=== PATIENT | female | born 1940 | race Caucasian/White ===

== ENCOUNTER → 2017-12-06 13:08 | Outpatient (CLI) | payer MEDICARE, BC, SELFPAY ==
--- NOTE | 2017-12-06 13:14 | DI.MRI.S_ITS ---
PROCEDURE: MR THORACIC SPINE WO CON INDICATIONS: Chronic thoracic spine and rib pain TECHNIQUE: Noncontrast sagittal T1 spine echo and T2 fast spin echo, sagittal STIR, axial T1 and T2 fast spin echo through the thoracic spine. COMPARISON: None. FINDINGS: Image quality: Excellent. Alignment and Curvature: There is normal bony alignment. Bone Marrow: Marrow is of normal overall signal. No acute vertebral body compression fractures. Spinal Cord: Visualized spinal cord is normal in size and signal. Paraspinous Soft Tissues: No paravertebral masses. Multiple T2 hyperintense, T1 hypointense lesions are present within the renal cortex bilaterally. Miscellaneous: On axial images, central canal and foramina appear widely patent at all scanned levels. IMPRESSION: 1. Normal spinal alignment. No wedge compression deformities, canal stenosis, or foraminal narrowing. No findings to explain chronic thoracic pain. 2. Probable renal cysts which are incompletely characterized on this limited view. Dictated by: Lindsey Condon M.D. on 12/06/2017 at 15:59 Approved by: Lindsey Condon M.D. on 12/06/2017 at 16:01
== END ==
PROVIDERS: Family Provider Family Medicine; PCP Family Medicine; Visit Provider Physical Medicine & Rehabilitation
DX: M54.6 Pain in thoracic spine (principal); R07.81 Pleurodynia; G89.29 Other chronic pain; R07.89 Other chest pain
CPT/HCPCS: 72146

== ENCOUNTER → 2017-12-25 11:41 | Outpatient (CLI) | payer MEDICARE, BC, SELFPAY | PROVIDERS: Family Provider Family Medicine; PCP Family Medicine; Visit Provider Family Medicine | DX: M81.0 Age-related osteoporosis without current pathological fracture (principal); Z78.0 Asymptomatic menopausal state; Z87.891 Personal history of nicotine dependence | CPT/HCPCS: 77080 ==

== ENCOUNTER → 2018-01-09 11:20 | Outpatient (CLI) | payer MEDICARE, BC, SELFPAY ==
--- NOTE | 2018-01-09 11:23 | DI.RAD.S_ITS ---
PROCEDURE: XR LUMBAR SPINE MIN 4V INDICATIONS: Lumbosacral spondylosis with coccydynia TECHNIQUE: 5 views of the lumbar spine were acquired. COMPARISON: None. FINDINGS: Bones: 5 nonrib-bearing vertebrae are present. Age indeterminate anterior wedge compression deformity at L2 level is seen with 20% loss of L2 vertebral body height anteriorly. Minimal anterolisthesis of L4 on L5 is seen. Degenerative endplate changes and bilateral facet arthrosis throughout lumbar spine is noted. No suspicious bony lesions. Soft tissues: Overlying bowel gas pattern is normal. No suspicious soft tissue calcifications. Oblique images: No pars defects. Suggestion of bilateral neural foramina narrowing at L4-5 level. IMPRESSION: Grade 1 anterolisthesis of L4 on L5. No gross pars defect. Degenerative disc disease throughout lumbar spine with suggestion of bilateral neural foramina narrowing at L4-5 level. Age indeterminate mild compression deformity at L2 level. Dictated by: Salvatore Winters M.D. on 01/09/2018 at 12:36 Approved by: Salvatore Winters M.D. on 01/09/2018 at 12:37
== END ==
PROVIDERS: Family Provider Family Medicine; PCP Family Medicine; Visit Provider Physical Medicine & Rehabilitation
DX: M47.817 Spondylosis without myelopathy or radiculopathy, lumbosacral region (principal); M51.36 Other intervertebral disc degeneration, lumbar region; M53.3 Sacrococcygeal disorders, not elsewhere classified; M43.16 Spondylolisthesis, lumbar region
CPT/HCPCS: 72110

== ENCOUNTER → 2018-01-22 11:23 | Outpatient (CLI) | payer MEDICARE, BC, SELFPAY ==
--- NOTE | 2018-01-22 11:25 | DI.MRI.S_ITS ---
PROCEDURE: MR LUMBAR SPINE WO CON INDICATIONS: Spondylosis without myelopathy or radiculopathy, l TECHNIQUE: Noncontrast sagittal T1 spin echo and T2 fast echo, sagittal STIR, axial T1 and T2 fast spin echo through the lumbar spine. In cases with scoliosis, additional coronal T2 fast spin echo may be performed. COMPARISON: None. FINDINGS: Image quality: Excellent. Alignment and Curvature: There is normal bony alignment. Bone Marrow: Chronic appearing L2 compression fracture. Presumed bone island in the L3 vertebral body Spinal Cord: Conus medullaris terminates at the L2 level. Visualized cord demonstrates normal signal and size. Paraspinous Soft Tissues: No paravertebral masses. Numerous bilateral T2 hyperintense renal lesions presumably small cysts although technically nonspecific L1-L2: Mild broad-based posterior disc bulge and minimal canal narrowing. No foraminal stenosis. L2-L3: Normal appearance. L3-L4: Minimal broad-based posterior disc bulge and bilateral facet arthropathy. No canal stenosis or neuroforaminal narrowing.. L4-L5: Broad-based posterior small bilateral facet arthropathy. No definite canal narrowing. No foraminal stenosis. L5-S1: Broad-based posterior disc bulge bilateral facet arthropathy. No canal stenosis. No foraminal narrowing. IMPRESSION: Mild multilevel lumbar disc and facet degeneration and chronic L2 compression fracture. No high-grade canal stenosis. No foraminal narrowing. Dictated by: Rah Worthy M.D. on 01/22/2018 at 14:17 Approved by: Rah Worthy M.D. on 01/22/2018 at 14:24
== END ==
PROVIDERS: Family Provider Family Medicine; PCP Family Medicine; Visit Provider Physical Medicine & Rehabilitation
DX: M47.817 Spondylosis without myelopathy or radiculopathy, lumbosacral region (principal); M51.36 Other intervertebral disc degeneration, lumbar region; M48.56XA Collapsed vertebra, not elsewhere classified, lumbar region, initial encounter for fracture
CPT/HCPCS: 72148

== ENCOUNTER 2018-10-01 10:43 | Emergency (ER) | payer MEDICARE, BC, SELFPAY ==
[2018-10-01 10:51] VITALS: BP 164/80; PULSE 65; RESP 16; TEMP 37.1; O2SAT 99; BMI 18.5
--- NOTE | 2018-10-01 10:55 | DI.RAD.S_ITS ---
PROCEDURE: XR CHEST 2V INDICATIONS: felt pop in left rib TECHNIQUE: 2 views of the chest were acquired. COMPARISON: [facility], , CHEST 1 VIEW, 09/30/2016, 12:45. FINDINGS: Surgical changes and devices: None. Lungs and pleura: Lungs are clear. No pleural effusions or pneumothorax. Lungs are hyperinflated. Mediastinum: Mediastinal contours are normal. Heart size is normal. Bones and chest wall: No suspicious bony abnormalities. Soft tissues appear unremarkable. There is a nondisplaced lucency in the left lateral 8th rib. IMPRESSION: 1. Hyperinflation suggestive of COPD. 2. Nondisplaced lucency in the left 8th lateral rib. Recommend correlation to point tenderness, as nondisplaced fracture cannot be excluded vs artifact. If concern persists, rib series cannot be excluded. Dictated by: Tali Bauer M.D. on 10/01/2018 at 12:00 Approved by: Tali Bauer M.D. on 10/01/2018 at 12:05
--- NOTE | 2018-10-01 12:46 | PC.NURSE ---
Pt called into ED requesting update. I went out to speak w/ her. at chair. Explained to pt that I did not have an area to bring her back to at this time r/t high acuity / volume but she would be seen soon. Explained triage system. Pt refused offer of tylenol / ibuprofen stating 'they don't work'. Pt had easy work of breathing and could speak in full sentences. Chest x ray had been completed. At that time pt began to explain that she would like prednisone. I was starting to explain that she could discuss w/ provider in private area when she was seen. then began to discuss why that was not a good idea. I asked to hold for a moment as I wanted to ensure privacy. then stated I had screwed up and was not doing my job. He started to raise his voice, at that time I asked that he show patience. he then told me that I had screwed up doing triage. I went on to explain that we had significant acuity and volume at this time. He appeared to be attempting to intimidate me. He continued to tell me I had made an error in not bringing his back. I asked pt is an ice pack would help, she stated yes, and one was provided. I also spoke w/ provider about a lidocaine patch, which was ordered. When I went back to give ice pack, was not there.
--- NOTE | 2018-10-01 12:57 | PC.NURSE ---
Pt called stating she wanted to leave. [facility] informer her that there were going to be discharges soon and the wait may not be excessive. She chose to leave and signed VDC form.
== END 2018-10-01 12:56 | disposition left against medical advice (07) ==
PROVIDERS: Emergency Provider Emergency Medicine; Family Provider Physical Medicine & Rehabilitation; PCP Family Medicine
DX: R07.81 Pleurodynia (principal); Z53.20 Procedure and treatment not carried out because of patient's decision for unspecified reasons; M41.50 Other secondary scoliosis, site unspecified; S32.029A Unspecified fracture of second lumbar vertebra, initial encounter for closed fracture; M94.0 Chondrocostal junction syndrome [Tietze]; M54.14 Radiculopathy, thoracic region; M47.817 Spondylosis without myelopathy or radiculopathy, lumbosacral region; M53.3 Sacrococcygeal disorders, not elsewhere classified; M19.071 Primary osteoarthritis, right ankle and foot
CPT/HCPCS: 71046; 98925; 99213; 99282

== ENCOUNTER → 2018-11-01 12:36 | Outpatient (CLI) | payer MEDICARE, BC, SELFPAY ==
--- NOTE | 2018-11-01 | DI.CT.S_ITS ---
PROCEDURE: CT CHEST WO CON INDICATIONS: ABNORMAL RIB XRAY. LEFT 8TH LATERAL TECHNIQUE: Noncontrast 5 mm thick sections acquired from the pulmonary apices to the posterior costophrenic angles. 7 mm thick coronal and sagittal MIP reformats were then acquired. For radiation dose reduction, the following was used: automated exposure control, adjustment of mA and/or kV according to patient size. COMPARISON: [facility], CT, ANGIOGRAPHY CHEST AND ABDOMEN, 09/30/2016, 12:58. FINDINGS: Image quality: Diagnostic. Lungs and pleura: The lungs are well aerated. There is no focal consolidation, effusion, or pneumothorax. Minimal scar versus atelectasis at the left lung base is present. There is no lung mass or definite lung nodule. Mediastinum: Heart size is normal. No pericardial effusion. No mediastinal adenopathy by size criteria. Thoracic aorta and central pulmonary arteries are normal in size. Coronary and aortic atherosclerosis is present. Esophagus is normal in caliber. No hiatal hernia. Bones and chest wall: No suspicious bony lesions. No vertebral body compression fractures. No displaced rib fractures are identified. There are prominent degenerative changes at the sternomanubrial junction with associated sclerosis and areas of degenerative cystic change. No axillary or supraclavicular adenopathy by size criteria. Thyroid gland is not enlarged or adequately evaluated. Abdomen: Included portions of the upper abdomen demonstrate heterogeneity of both kidneys with areas of increased and decreased density which is not adequately evaluated on this study and may represent mildly complex cysts. Otherwise, the included portions of the upper abdomen are unremarkable. IMPRESSION: 1. No acute cardio pulmonary process. 2. Prominent degenerative changes of the sternomanubrial junction may be related costochondritis. No fractures of the sternum or adjacent ribs are evident. 3. Coronary and aortic atherosclerosis. 4. Nonspecific heterogeneity of both kidneys probably represent subtle cysts. Please consider a CT urogram for better evaluation. Dictated by: Tony Hoskins M.D. on 11/01/2018 at 13:59 Approved by: Tony Hoskins M.D. on 11/01/2018 at 14:04
== END ==
PROVIDERS: Family Provider Physical Medicine & Rehabilitation; PCP Family Medicine; Visit Provider Family Medicine
DX: R93.7 Abnormal findings on diagnostic imaging of other parts of musculoskeletal system (principal); I25.10 Atherosclerotic heart disease of native coronary artery without angina pectoris; I70.0 Atherosclerosis of aorta
CPT/HCPCS: 71250

== ENCOUNTER → 2018-11-29 10:59 | Outpatient (CLI) | payer MEDICARE, BC, SELFPAY ==
--- NOTE | 2018-11-29 11:00 | DI.NM.S_ITS ---
PROCEDURE: NM BONE SCAM MULTIPLE AREAS RADIOPHARMACEUTICAL: 19.4 mCi Tc-99m MDP IV. INDICATIONS: Chronic costochondritis TECHNIQUE: Multiple delayed bone scintigrams of the body part of interest were obtained approximately 3 hours after intravenous injection of Tc-99m MDP. COMPARISON: [facility], CR, XR LUMBAR SPINE MIN 4V, 01/09/2018, 11:02. [facility], CR, XR CHEST 2V, 10/01/2018, 11:44. [facility], MR, MR LUMBAR SPINE WO CON, 01/22/2018, 11:39. [facility], MR, MR THORACIC SPINE WO CON, 12/06/2017, 13:25. [facility], CT, CT CHEST WO CON, 11/01/2018, 13:10. FINDINGS: There is a near increased uptake in the area of L4, suspicious for compression fracture. Mild compression deformity is noted in the L2 vertebral body where no abnormal uptake, consistent with old compression fracture. There is increased activity at the sternomanubrial joint, consistent with degenerative/arthritic change. No definitive scintigraphic findings to correlate with costochondritis. IMPRESSION: 1. Linear increased activity in L4 suspicious for compression fracture. Recommend radiographic correlation. 2. Mild chronic compression fracture of L2 seen on lumbar spine MRI and radiograph demonstrates no MDP uptake, consistent with old fracture. 3. Degenerative/arthritic change at the sternomanubrial joint. 4. No scintigraphic findings to correlate with costochondritis. Dictated by: Taj Basilio M.D. on 11/29/2018 at 16:06 Approved by: Taj Basilio M.D. on 11/29/2018 at 17:35
== END ==
PROVIDERS: Family Provider Physical Medicine & Rehabilitation; PCP Family Medicine; Visit Provider Physical Medicine & Rehabilitation
DX: M94.0 Chondrocostal junction syndrome [Tietze] (principal); R07.81 Pleurodynia; M48.56XS Collapsed vertebra, not elsewhere classified, lumbar region, sequela of fracture
CPT/HCPCS: 78305; A9503

== ENCOUNTER → 2018-12-06 15:40 | Outpatient (CLI) | payer MEDICARE, BC, SELFPAY ==
--- NOTE | 2018-12-06 15:43 | DI.MRI.S_ITS ---
PROCEDURE: MR LUMBAR SPINE WO CON INDICATIONS: possible L4 compression fx TECHNIQUE: Noncontrast sagittal T1 spin echo and T2 fast echo, sagittal STIR, axial T1 and T2 fast spin echo through the lumbar spine. In cases with scoliosis, additional coronal T2 fast spin echo may be performed. COMPARISON: [facility], CT, CT CHEST WO CON, 11/01/2018, 13:10. [facility], MR, MR LUMBAR SPINE WO CON, 01/22/2018, 11:39. FINDINGS: Image quality: Excellent. Alignment and Curvature: There is normal bony alignment. Bone Marrow: Severe compression deformity at L2 is unchanged when compared with the prior MRI dated 01/22/18. There is a new compression deformity at the superior endplate of L3 with approximately 35% vertebral body height loss. There is only trace increased fluid signal within this endplate depression suggesting a subacute or chronic finding. Vertebral body height is otherwise preserved throughout the lumbar spine. Spinal Cord: Conus medullaris terminates at the T12 level. Visualized cord demonstrates normal signal and size. Paraspinous Soft Tissues: No paravertebral masses. L1-L2: Disc desiccation and height loss. Broad-based disc bulge. Superior L2 endplate depression. No canal stenosis. No neural foraminal narrowing. These findings are unchanged from the prior MRI dated 01/22/18. L2-L3: New superior L3 endplate depression. Broad-based disc bulge. No canal stenosis. No neural foraminal stenosis. L3-L4: The broad-based disc bulge. No canal stenosis. No neural foraminal stenosis. L4-L5: Broad-based disc bulge. No canal stenosis. No neural foraminal narrowing. L5-S1: Mild disc bulge. Mild facet and ligamentum flavum hypertrophy. No canal stenosis. No foraminal stenosis. IMPRESSION: 1. New superior endplate depression at L3 when compared with the prior MRI dated 01/22/18 with 35% vertebral body height loss. Trace marrow edema is present within this region suggesting a subacute or early chronic finding. 2. No canal stenosis or neural foraminal narrowing of the lumbar spine. Dictated by: Lindsey Condon M.D. on 12/06/2018 at 16:37 Approved by: Lindsey Condon M.D. on 12/06/2018 at 16:42
== END ==
PROVIDERS: Family Provider Physical Medicine & Rehabilitation; PCP Family Medicine; Visit Provider Physical Medicine & Rehabilitation
DX: M48.56XA Collapsed vertebra, not elsewhere classified, lumbar region, initial encounter for fracture (principal)
CPT/HCPCS: 72148

== ENCOUNTER → 2019-06-10 10:48 | Outpatient (CLI) | payer MEDICARE, BC, SELFPAY ==
--- NOTE | 2019-06-10 | DI.MRI.S_ITS ---
PROCEDURE: MR LUMBAR SPINE WO CON INDICATIONS: Low back pain TECHNIQUE: Noncontrast sagittal T1 spin echo and T2 fast echo, sagittal STIR, axial T1 and T2 fast spin echo through the lumbar spine. In cases with scoliosis, additional coronal T2 fast spin echo may be performed. COMPARISON: [facility], MR, MR LUMBAR SPINE WO CON, 01/22/2018, 11:39. [facility], MR, MR LUMBAR SPINE WO CON, 12/06/2018, 16:26. [facility], CR, XR LUMBAR SPINE 2-3V, 06/10/2019, 10:51. [facility], NM, NM BONE SCAN MULTIPLE AREAS, 11/29/2018, 14:30. FINDINGS: Image quality: Diagnostic Alignment and Curvature: There is mild to moderate levoconvex scoliosis is seen. Bone Marrow: Marrow is of normal overall signal. No acute vertebral body compression fractures. There are again seen anterior wedge deformities of the L2 and L3 levels. Scattered foci are seen, which are hyperintense on T1-weighted and T2-weighted imaging, which are most consistent with benign vertebral body hemangiomas. No significant change compared to the prior MRI. Spinal Cord: Conus medullaris terminates at the L1 level. Visualized cord demonstrates normal signal and size. Paraspinous Soft Tissues: No paravertebral masses. T12-L1: Normal appearance. L1-L2: No significant abnormality is seen. L2-L3: The disc height is well-preserved. Loss of disc signal is seen at this level. Mild generalized disc bulge is seen. There is mild right-sided and no significant neural foraminal narrowing seen. No significant change from the prior. L3-L4: The disc height is well-preserved. Loss of disc signal is seen at this level. Mild generalized disc bulge is seen. [id number]-[id number] facet hypertrophy is seen. No significant neural foraminal or central canal narrowing can be seen. Stable from the prior study. L4-L5: The disc height is well-preserved. Loss of disc signal is seen at this level. Mild to moderate disc bulge is seen, which is eccentric to the right. Moderate facet joint hypertrophy is seen. Mild central canal narrowing is seen. When comparison is made with the prior examination, these findings are similar. L5-S1: The disc height is well-preserved. Loss of disc signal is seen at this level. Minimal to mild disc bulge is seen. Mild facet joint hypertrophy is seen. No significant neural foraminal or central canal narrowing can be seen. Stable from the prior study. IMPRESSION: Stable L2 and L3 anterior wedge deformities. Stable mild lumbar spine degenerative change. Dictated by: Rock Tilley M.D. on 06/10/2019 at 14:09 Approved by: Rock Tilley M.D. on 06/10/2019 at 14:14
--- NOTE | 2019-06-10 | DI.MRI.S_ITS ---
PROCEDURE: MR BRAIN (IAC) WWO CON INDICATIONS: loss of hearing TECHNIQUE: Noncontrast sagittal T1 spin echo, axial FLAIR, axial gradient echo, axial diffusion and ADC through the brain. Axial thin-slice 3D CISS, coronal TruFISP, axial T1 spin echo with fat saturation through the internal auditory canals. After the administration of contrast, thin slice axial and coronal T1 spin echo with fat saturation through the internal auditory canals, and axial T1 spin echo with fat saturation through the brain. COMPARISON: None. FINDINGS: Image quality: Excellent. Cerebellopontine angles: No cerebellopontine angle masses. Inner ear structures appear normally formed. No suspicious enhancement in the internal auditory canal or along the course of the 7th cranial nerve. CSF spaces: Ventricles are normal in size and shape. No extra-axial fluid collections. Basal cisterns are patent. Brain: No intracranial bleeds or mass effects. Clark-white matter interface is intact. No abnormal intracranial enhancement. Diffusion weighted images demonstrate no acute ischemic insults. Brainstem appears normal. Normal intravascular flow voids are present. Skull and face: Calvarial marrow signal is normal. Orbits appear normal. Sinuses: Sinuses and mastoids are clear. IMPRESSION: There is no sign of acoustic neuroma, or abnormal inflammation at the skull base. The adjacent mastoid air cells appear normal. Source of reported right-sided hearing loss is not identified. Dictated by: Claudio Luna M.D. on 06/10/2019 at 13:28 Approved by: Claudio Luna M.D. on 06/10/2019 at 13:40
--- NOTE | 2019-06-10 10:50 | DI.RAD.S_ITS ---
PROCEDURE: XR LUMBAR SPINE 2-3V INDICATIONS: scoliosis with vert fx hx TECHNIQUE: 3 views of the lumbar spine were acquired. COMPARISON: [facility], CR, XR LUMBAR SPINE MIN 4V, 01/09/2018, 11:02. FINDINGS: Bones: 5 [id number] vertebrae are present. There is mildly levoscoliotic bony alignment. There are now 2 vertebral body compression fractures, involving L2 and L3 at the superior third of each of these 2 vertebral bodies. Previously present L2 compression fracture has not worsened. A new superior endplate/mild wedge compression fracture has developed at L3. No suspicious bony lesions. Soft tissues: Overlying bowel gas pattern is normal. No suspicious soft tissue calcifications. IMPRESSION: Interval element of new compression fracture involving the upper endplate and vertebral body of L3, stable appearance of a prior similar mild compression fracture at L2 previously present also 01/09/18 Dictated by: Claudio Luna M.D. on 06/10/2019 at 13:03 Approved by: Claudio Luna M.D. on 06/10/2019 at 13:05
== END ==
PROVIDERS: Family Provider Physical Medicine & Rehabilitation; PCP Family Medicine; Visit Provider Family Medicine
DX: H91.91 Unspecified hearing loss, right ear (principal); M47.26 Other spondylosis with radiculopathy, lumbar region; M47.27 Other spondylosis with radiculopathy, lumbosacral region; M51.26 Other intervertebral disc displacement, lumbar region; S32.029A Unspecified fracture of second lumbar vertebra, initial encounter for closed fracture; S32.039A Unspecified fracture of third lumbar vertebra, initial encounter for closed fracture; M41.50 Other secondary scoliosis, site unspecified
CPT/HCPCS: 70553; 72100; 72148; 99213; A9579

== ENCOUNTER 2019-07-05 10:38 | Outpatient (CLI) | payer MEDICARE, BC, SELFPAY ==
[2019-07-05] VITALS (9 sets, daily range): BP systolic 101–159; BP diastolic 25–75; PULSE 56–72; RESP 15–16; TEMP 36.1; O2SAT 95–100
--- NOTE | 2019-07-05 10:39 | DI.RAD.S_ITS ---
PROCEDURE: PAIN L/S TRANSFORAM INJECT JUNIE COMPARISON: None. INDICATIONS: INTERVERTEBRAL DISC DISPLACEMENT FINDINGS: Left-sided needle tip localization for transforaminal epidural steroid injection is noted. IMPRESSION: Successful needle tip localization for left L2-L3 transforaminal epidural steroid injection. Dictated by: Claudio Luna M.D. on 07/05/2019 at 12:48 Approved by: Claudio Luna M.D. on 07/05/2019 at 12:50
[2019-07-05] MEDS: MIDAZOLAM 5 MG/5 ML VIAL IV (11:11)
[2019-07-05] MEDS: IOPAMIDOL 15 ML VIAL 3 ML INJ (11:18)
[2019-07-05] MEDS: DEXAMETHASONE 10 MG/ML VIAL 20 MG INJ (11:19)
[2019-07-05] MEDS: BETAMETHASONE 30 MG/5 ML MDV 6 MG INJ (11:19)
[2019-07-05] MEDS: BUPIVACAINE 0.25% (PF) VIAL 2 ML INJ (11:19)
--- NOTE | 2019-07-05 11:21 | PC.NURSE ---
ASSISTING PT OFF TABLE AND TRANSPORTING TO POST PROC AREA IN STABLE CONDITION. PASSING RN CARE OF PT OFF TO LASHELL Rivera RN.
--- NOTE | 2019-07-05 11:22 | P.PCN_ITS ---
Procedures Date/Time Date of procedure: 07/05/19 Time of procedure: 11:22 General Procedure description: Operative Note PREOP DIAGNOSIS 1. FORAMINAL STENOSIS WITH LE SYMPTOMS, POST OP DIAGNOSIS 1. FORAMINAL STENOSIS WITH LE SYMPTOMS, PROCEDURES 1. FLUOROSCOPICALLY GUIDED CONTRAST CONTROLLED TRANSFORAMINAL EPIDURAL STEROID INJECTION - LEFT L2/3 TFESI SURGEON: Randal Hidalgo, DO INDICATIONS Kelly is referred by Dr. Montgomery for treatment of Foraminal Stenosis with left LE Symptoms FINDINGS Foraminal Nerve Root Compression secondary to disc disease and facet hypertrophy DESCRIPTION OF PROCEDURE Following review of allergy and review of potential side effects and complications, including, but not necessarily limited to, infection, allergic reaction, local tissue breakdown, stroke, temporary or permanent nerve injury, p aralysis, and possible , the patient indicated that the patient understood and agreed to proceed. An informed consent document was signed by the patient, witnessed by a nurse, and placed in the patient's chart. Additionally, other treatment options including medications, modalities, and physical therapy were reviewed with the patient. After review of previous anaesthesic history and IV conscious sedation the patient was deemed safe to proceed with todays procedure with IV conscious sedation as ASA class II designation. Safety time-out was performed to confirm patient ID, procedure to be performed and site of procedure. IV sedation was accomplished with 2mg of Versed was administered by the RN after DO order, titrated to patient comfort during the course of the procedure while the patient remained responsive to all verbal commands In the prone position following sterile prep and drape of the lumbar region, the left L2/3 posterior neuroforamen was identified fluoroscopically. The skin was anesthetized via a 25-gauge 1.5-inch needle with 1% lidocaine solution. At this point, a 25-gauge 3.5-inch spinal needle was atraumatically introduced and advanced under fluoroscopic guidance through the posterior left L2/3 neuroforamen to approximately the anterior aspect of the canal. Depth was confirmed on lateral view. Following negative aspiration, injection of approximately 1.5 cc of Isovue 200 under live fluoroscopy in the AP view confirmed excellent flow along the nerve root, into the epidural space without vascular or intrathecal uptake observed Radiological data, including multiple fluoroscopic views of the lumbosacral spine, reveal a spinal needle at the left L1/2 posterior neuroforamen. Subsequent views show flow of contrast material flowing superiorly and in feriorly along the nerve root confirming epidural flow. Subsequently, a test dose of 1.5 cc of 0.25% marcaine solution was administered and patient was observed for two minutes for signs or symptoms of complications, including abdominal pain, shortness of breath, bilateral upper or lower extremity weakness, nausea and vomiting, prior to steroid injection. At this point, a total of 2cc or 20mg of dexamethasone and 6mg of betamethasone was injected without incident. The patient tolerated the procedure well without signs or symptoms of complications prior to transfer to the recovery area continued monitoring without incident. The patient was then transferred to the recovery area where they were observed for an appropriate time after the injection. The patient reported a VAS score o f 7 prior to the procedure and a post-procedure VAS of 0. Total Fluoroscopy Time: 12 seconds Total Conscious Sedation Time: 24 min POST OP INSTRUCTIONS The patient was provided a Pain Log to continue to record their response to the target-specific procedure prior to follow-up visit with their referring physician. Additionally, specific post-injection care instructions and a contact number to our office were provided if concerns arise regarding possible complications associated with the procedure are suspected. Randal Hidalgo DO Complications: none Complications: none
--- NOTE | 2019-07-05 13:11 | PC.NURSE ---
moving all extremities, with standing pt still unsteady on her feet, ice water provided and tolerated. spouse at bs.
== END 2019-07-05 13:52 | disposition home or self-care (01) ==
PROVIDERS: Family Provider Physical Medicine & Rehabilitation; PCP Family Medicine; Referring Provider Physical Medicine & Rehabilitation; Visit Provider Physical Medicine & Rehabilitation
DX: M48.061 Spinal stenosis, lumbar region without neurogenic claudication (principal); M51.16 Intervertebral disc disorders with radiculopathy, lumbar region
CPT/HCPCS: 64483; J0702; J1100; J2250; J3010

== ENCOUNTER → 2020-03-30 10:33 | Outpatient (CLI) | payer MEDICARE, BC, SELFPAY ==
--- NOTE | 2020-03-30 | DI.US.S_ITS ---
PROCEDURE: US PELVIC COMPLETE INDICATIONS: Pelvic and perineal pain TECHNIQUE: Real-time scanning was performed of the pelvic organs, with image documentation. Additional endovaginal scanning was necessary due to incomplete visualization of the adnexal and endometrial structures by transabdominal scanning. COMPARISON: None. FINDINGS: Transabdominal scanning: Limited scanning through the kidneys shows no hydronephrosis. There is thinning of the right renal cortex. Right renal cyst is noted. No pathologic free abdominal or pelvic fluid. Endovaginal scanning: Uterus: Uterus is normal in size at 4.9 x 3.8 x 2.6 cm. The endometrium measures 6.7 mm in combined thickness. There is a left posterior intramural fibroid which measures 1.2 x 1.1 x 0.9 cm and a midline posterior intramural fibroid which measures 1.0 x 0.5 x 0.6 cm. Nabothian cysts are present at the cervix. Ovaries: The right ovary measures 1.3 x 1.8 x 0.8 cm. There is a 4 mm right ovarian cyst . The right ovary has a heterogeneous echotexture. Multiple echogenic foci are present suggesting calcifications. The left ovary is not visualized. IMPRESSION: 1. Fibroid uterus. 2. Heterogeneous echotexture of the right ovary. No sonographic abnormalities. Left ovary is not visualized. If pain persists and further characterization is warranted, gynecologic protocol MRI could be used. Dictated by: Lindsey Condon M.D. on 03/30/2020 at 15:06 Approved by: Lindsey Condon M.D. on 03/30/2020 at 15:13
== END ==
PROVIDERS: Family Provider Physical Medicine & Rehabilitation; PCP Family Medicine; Referring Provider Family Medicine; Visit Provider Physician Assistant
DX: R10.2 Pelvic and perineal pain (principal); D25.1 Intramural leiomyoma of uterus
CPT/HCPCS: 76830; 76856

== ENCOUNTER → 2021-07-19 10:27 | Outpatient (CLI) | payer MEDICARE, BC, SELFPAY ==
[2021-07-19 19:30] LABS: Add Manual Diff / Slide Review NO; Basophils Absolute Auto 0 /uL (0-100); Basophils Percent Auto 0.9 % (0-2); Eosinophils Absolute Auto 300 /uL (0-450); Hematocrit 38.3 % (36-46); Hemoglobin 12.8 g/dL (12.0-16.0); Lymphocytes Absolute Auto 1200 /uL (1100-4500); Lymphocytes Percent Auto 26.5 % (25-40); Mean Corpuscular HGB Conc 33.5 % (30-36); Mean Corpuscular Hemoglobin 32.6 PG (26-34); Mean Corpuscular Volume 97.6 fL (80-100); Monocytes Absolute Auto 400 /uL (0-900); Monocytes Percent Auto 9.4 % (3-14); Neutrophils Absolute Auto 2600 /uL (1500-7000); Neutrophils Percent Auto 57.2 % (50-75); Platelet Count 186 X10^3/uL (150-400); Red Blood Cell Count 3.92 X10^6/uL (4.0-5.2); Red Cell Distribution Width 13.5 % (11.6-14.8); White Blood Cell Count 4.5 X10^3/uL (4.5-11.0)
[2021-07-19 19:40] LABS: Alanine Aminotransferase 20 IU/L (<35); Albumin 4.2 g/dL (3.5-5.0); Albumin Globulin Ratio 1.4 (1.0-2.8); Alkaline Phosphatase 40 U/L (38-126); Aspartate Aminotransferase 34 IU/L (14-36); BUN Creatinine Ratio 24.6 (6-22); Bilirubin Total 0.7 mg/dL (0.2-1.3); Blood Urea Nitrogen 17 mg/dL (7-17); Calcium 9.4 mg/dL (8.4-10.2); Carbon Dioxide 34 mmol/L (22-32); Chloride 101 mmol/L (98-107); Cholesterol 189 mg/dL (140-199); Estimated Glomerular Filt Rate > 60.0 mL/min (>60); Globulin 2.9 g/dL (1.7-4.1); Glucose 96 mg/dL (80-110); HDL Cholesterol 69 mg/dL (40-60); HEMOLYSIS < 15 (0-50); LDL Cholesterol Calculated 102 mg/dL (<100); Potassium 4.4 mmol/L (3.4-5.1); Sodium 137 mmol/L (137-145); Total Protein 7.1 g/dL (6.3-8.2); Triglycerides 91 mg/dL (35-150)
== END ==
PROVIDERS: Family Provider Physical Medicine & Rehabilitation; PCP Physician Assistant; Visit Provider Physician Assistant
DX: R07.89 Other chest pain (principal); I10 Essential (primary) hypertension
CPT/HCPCS: 80053; 80061; 85025

== ENCOUNTER → 2021-10-12 11:45 | Outpatient (CLI) | payer MEDICARE, BC, SELFPAY ==
--- NOTE | 2021-10-12 11:47 | DI.MG.S_ITS ---
BILATERAL DIGITAL SCREENING MAMMOGRAM 3D/2D WITH CAD: 10/12/2021 CLINICAL: Routine screening. Comparison is made to exams dated: 06/06/2019 mammogram, 03/06/2017 stereotactic biopsy, 02/13/2017 mammogram, and 02/19/2016 mammogram - [facility]. The tissue of both breasts is heterogeneously dense. This may lower the sensitivity of mammography. Current study was also evaluated with a Computer Aided Detection (CAD) system. There are benign calcifications in both breasts. There also is a biopsy clip in the left breast. No significant masses, calcifications, or other findings are seen in either breast. There has been no significant interval change. IMPRESSION: BENIGN There is no mammographic evidence of malignancy. A 1 year screening mammogram is recommended. This exam was interpreted at Station ID: [id number]. NOTE: For mammograms, a report in lay terms will be sent to the patient. Approximately 15% of breast malignancies will not be visualized mammographically. In the management of a palpable breast mass, a negative mammogram must not discourage biopsy of a clinically suspicious lesion. Electronically Signed By: Delmar camacho/nav:10/12/2021 13:03:20 letter sent: Normal Exam ACR BI-RADS Category 2: Benign Finding(s) [id number]
== END ==
PROVIDERS: Family Provider Physical Medicine & Rehabilitation; Referring Provider Physician Assistant; Visit Provider Physician Assistant
DX: S32.039A Unspecified fracture of third lumbar vertebra, initial encounter for closed fracture (principal); Z12.31 Encounter for screening mammogram for malignant neoplasm of breast; M81.0 Age-related osteoporosis without current pathological fracture; M85.88 Other specified disorders of bone density and structure, other site
CPT/HCPCS: 77063; 77067; 77080

== ENCOUNTER → 2021-11-17 10:56 | Outpatient (CLI) | payer MEDICARE, BC, SELFPAY ==
[2021-11-17 20:52] LABS: BUN Creatinine Ratio 27.4 (6-22); Blood Urea Nitrogen 20 mg/dL (7-17); Calcium 9.6 mg/dL (8.4-10.2); Carbon Dioxide 31 mmol/L (22-32); Chloride 96 mmol/L (98-107); Estimated Glomerular Filt Rate > 60 mL/min (>60); Glucose 91 mg/dL (80-110); HEMOLYSIS < 15 (0-50); Sodium 134 mmol/L (137-145)
== END ==
PROVIDERS: Family Provider Physical Medicine & Rehabilitation; PCP Family Medicine; Visit Provider Family Medicine
DX: M81.0 Age-related osteoporosis without current pathological fracture (principal); Z01.818 Encounter for other preprocedural examination
CPT/HCPCS: 80048

== ENCOUNTER → 2021-12-22 11:42 | Outpatient (CLI) | payer MEDICARE, BC, SELFPAY ==
[2021-12-22 19:52] LABS: Add Manual Diff / Slide Review NO; BUN Creatinine Ratio 28.4 (6-22); Basophils Absolute Auto 100 /uL (0-100); Basophils Percent Auto 0.8 % (0-2); Blood Urea Nitrogen 19 mg/dL (7-17); Calcium 9.6 mg/dL (8.4-10.2); Carbon Dioxide 30 mmol/L (22-32); Chloride 97 mmol/L (98-107); Eosinophils Absolute Auto 200 /uL (0-450); Eosinophils Percent Auto 2.2 % (2-4); Estimated Glomerular Filt Rate > 60 mL/min (>60); Glucose 82 mg/dL (80-110); HEMOLYSIS < 15 (0-50); Hematocrit 37.8 % (36-46); Hemoglobin 12.7 g/dL (12.0-16.0); Lymphocytes Absolute Auto 1300 /uL (1100-4500); Lymphocytes Percent Auto 15.7 % (25-40); Mean Corpuscular HGB Conc 33.6 % (30-36); Mean Corpuscular Volume 98.2 fL (80-100); Monocytes Absolute Auto 600 /uL (0-900); Monocytes Percent Auto 7.1 % (3-14); Neutrophils Absolute Auto 6000 /uL (1500-7000); Neutrophils Percent Auto 74.2 % (50-75); Platelet Count 200 X10^3/uL (150-400); Red Blood Cell Count 3.85 X10^6/uL (4.0-5.2); Red Cell Distribution Width 13.5 % (11.6-14.8); Sodium 131 mmol/L (137-145); White Blood Cell Count 8.1 X10^3/uL (4.5-11.0)
[2021-12-22 19:53] LABS: Potassium 5.4 mmol/L (3.4-5.1)
== END ==
PROVIDERS: Family Provider Physical Medicine & Rehabilitation; PCP Family Medicine; Visit Provider Family Medicine
DX: M51.26 Other intervertebral disc displacement, lumbar region (principal); D64.9 Anemia, unspecified; E87.1 Hypo-osmolality and hyponatremia
CPT/HCPCS: 80048; 85025

== ENCOUNTER → 2022-01-24 14:02 | Outpatient (CLI) | payer MEDICARE, BC, SELFPAY ==
[2022-01-24 19:52] LABS: BUN Creatinine Ratio 28.8 (6-22); Blood Urea Nitrogen 21 mg/dL (7-17); Calcium 9.6 mg/dL (8.4-10.2); Carbon Dioxide 27 mmol/L (22-32); Chloride 94 mmol/L (98-107); Estimated Glomerular Filt Rate > 60 mL/min (>60); Glucose 83 mg/dL (80-110); HEMOLYSIS 15 (0-50); Potassium 4.6 mmol/L (3.4-5.1); Sodium 130 mmol/L (137-145)
[2022-01-24 19:56] LABS: HEMOLYSIS < 15 (0-50); Iron 73 ug/dL (37-170)
[2022-01-24 20:09] LABS: Percent Iron Saturation 24 % (15-50); Total Iron Binding Capacity 300 ug/dL (265-497); Transferrin 230 mg/dL (206-381)
[2022-01-24 20:40] LABS: Sodium Urine Random 8 mmol/L (30-90)
[2022-01-26 11:02] LABS: Osmolality Urine 220 mOsmol/kg (.); Osmolality, Serum 277 mOsmol/kg (280-301)
== END ==
PROVIDERS: Family Provider Physical Medicine & Rehabilitation; PCP Family Medicine; Visit Provider Family Medicine
DX: I10 Essential (primary) hypertension (principal); D64.9 Anemia, unspecified; E87.1 Hypo-osmolality and hyponatremia; I73.00 Raynaud's syndrome without gangrene
CPT/HCPCS: 80048; 83540; 83550; 83930; 83935; 84300; 84443

== ENCOUNTER → 2022-01-27 10:53 | Outpatient (CLI) | payer MEDICARE, BC, SELFPAY ==
[2022-01-31 13:34] LABS: Fecal Immunochemical Test Negative (Negative)
== END ==
PROVIDERS: Family Provider Physical Medicine & Rehabilitation; PCP Family Medicine; Visit Provider Family Medicine
DX: D64.9 Anemia, unspecified (principal); E87.1 Hypo-osmolality and hyponatremia; I73.00 Raynaud's syndrome without gangrene
CPT/HCPCS: 82274

== ENCOUNTER → 2022-02-28 11:30 | Outpatient (CLI) | payer MEDICARE, BC, SELFPAY | PROVIDERS: Family Provider Physical Medicine & Rehabilitation; PCP Family Medicine; Visit Provider Family Medicine | DX: E87.1 Hypo-osmolality and hyponatremia (principal) | CPT/HCPCS: 84588 ==

== ENCOUNTER → 2022-04-14 14:58 | Outpatient (CLI) | payer MEDICARE, BC, SELFPAY ==
--- NOTE | 2022-04-14 14:58 | DI.MRI.S_ITS ---
PROCEDURE: MR LUMBAR SPINE WO CON INDICATIONS: lumbar stenosis TECHNIQUE: Noncontrast sagittal T1 spin echo and T2 fast echo, sagittal STIR, and T2 fast spin echo through the lumbar spine. In cases with scoliosis, additional coronal T2 fast spin echo may be performed. COMPARISON: [facility], MR, MR LUMBAR SPINE WO CON, 06/10/2019, 11:06. FINDINGS: Image quality: Excellent. Alignment and Curvature: Leftward curvature of the lumbar spine. Bone: Marrow is of normal overall signal. No acute vertebral body compression fractures. Anterior wedging of L2 and L3 with convexity of the superior endplate and no associated marrow edema consistent with remote compression fractures. Leftward curvature of the lumbar spine with a Dockery angle of 20?. Spinal Cord: Conus medullaris terminates at the L1 level. Visualized cord demonstrates normal signal and size. Paraspinous Soft Tissues: No paravertebral masses. T12-L1: No significant disc bulge. The foramina and central canal are patent. L1-L2: Diffuse disc bulge with no significant foraminal or central canal stenosis. L2-L3: Diffuse disc bulge with no significant foraminal or central canal stenosis. L3-L4: Diffuse disc bulge with no significant foraminal or central canal stenosis. L4-L5: Diffuse disc bulge with no significant foraminal or central canal stenosis. L5-S1: Diffuse disc bulge with no significant foraminal or central canal stenosis. IMPRESSION: 1. Multilevel mild disc bulges with no significant foraminal or central canal stenosis. 2. Levoscoliosis of the lumbar spine. 3. Remote compression fractures of L2 and L3. Dictated by: Fredi Balderrama M.D. on 04/14/2022 at 16:41 Approved by: Fredi Balderrama M.D. on 04/14/2022 at 16:46
== END ==
PROVIDERS: Family Provider Physical Medicine & Rehabilitation; PCP Family Medicine; Referring Provider Physical Medicine & Rehabilitation; Visit Provider Physical Medicine & Rehabilitation
DX: M51.26 Other intervertebral disc displacement, lumbar region (principal); M51.36 Other intervertebral disc degeneration, lumbar region; M51.37 Other intervertebral disc degeneration, lumbosacral region; M41.80 Other forms of scoliosis, site unspecified; M48.56XS Collapsed vertebra, not elsewhere classified, lumbar region, sequela of fracture
CPT/HCPCS: 72148

== ENCOUNTER 2022-04-26 12:56 | Outpatient (CLI) | payer MEDICARE, BC, SELFPAY ==
[2022-04-26] VITALS (9 sets, daily range): BP systolic 114–155; BP diastolic 61–92; PULSE 63–71; RESP 10–19; TEMP 36; O2SAT 99–100
--- NOTE | 2022-04-26 14:08 | DI.RAD.S_ITS ---
PROCEDURE: PAIN L/S FACET INJ/BLK 1ST JUNIE COMPARISON: None. INDICATIONS: SPONDYLOSIS FINDINGS: Access needle tips at the bilateral L4-L5 and L5-S1 facet joints. Injection of small amount of contrast material demonstrates axis needle tips are within the joint spaces. IMPRESSION: Access needle tips in the bilateral L4-L5 and L5-S1 facet joints for steroid joint injection. Dictated by: Emmy Delgado MD, PhD on 04/26/2022 at 15:36 Approved by: Emmy Delgado MD, PhD on 04/26/2022 at 15:36
[2022-04-26] MEDS: MIDAZOLAM 2 MG/2 ML VIAL IV (14:24)
[2022-04-26] MEDS: BUPIVACAINE 0.5% (PF) VIAL 5 ML INJ (14:27)
[2022-04-26] MEDS: IOPAMIDOL 15 ML VIAL 3 ML INJ (14:27)
[2022-04-26] MEDS: LIDOCAINE 1% (PF) 5 ML INJ (14:28)
[2022-04-26] MEDS: BETAMETHASONE 30 MG/5 ML MDV 12 MG INJ (14:28)
--- NOTE | 2022-04-26 14:45 | P.PCN_ITS ---
Date/Time/Diagnoses Date of procedure: 04/26/22 Time of procedure: 14:45 Pre-procedure diagnosis: 1. FACET ARTHROPATHY 2. AXIAL LBP 3. MULTILEVEL DDD Post-procedure diagnosis: same Procedure Notes Procedure: 1. FLUOROSCOPICALLY GUIDED CONTRAST CONTROLLED FACET JOINT INJECTIONS BILATERAL L4/5, L5/S1 Indications: Kelly is referred by Dr. Diaz for treatment of Axial LBP Physician: Randal Hidalgo Total Fluoroscopy time (seconds): 15 Total sedation minutes: 13 Complications: none Procedure in detail & Post-procedure care: FINDINGS Multilevel Facet Arthropathy with Clinically significant axial LBP DESCRIPTION OF PROCEDURE Fluoroscopically guided, contrast-controlled bilateral L4/5, L5/S1 facet joint injections. Following review of allergy and review of potential side effects and complications, including, but not necessarily limited to, infection, allergic reaction, local tissue breakdown, stroke, temporary or permanent nerve injury, paralysis, and possible , the patient indicated that the patient understood and agreed to proceed. An informed consent document was signed by the patient, witnessed by a nurse, and placed in the patient's chart. Additionally, other treatment options including medications, modalities, and physical therapy were reviewed with the patient. After review of previous anaesthesic history and IV conscious sedation the patient was deemed safe to proceed with today?s procedure with IV conscious sedation as ASA class II designation. Safety time-out was performed to confirm patient ID, procedure to be performed and site of procedure. IV sedation was accomplished with a combination of 2mg of Versed was administered by the RN after DO order, titrated to patient comfort during the course of the procedure while the patient remained responsive to all verbal commands In the prone position, following sterile prep and drape of the lumbar region, the posterior aspect of the L4/5, L5/S1 facet joints were identified fluoroscopically. The skin was anesthetized via a 25-gauge 1.5inch needle with 1% lidocaine solution into the corresponding facet joints. At this point, a 22- gauge 3.5-inch spinal needle was atraumatically introduced and advanced under fluoroscopic guidance into the corresponding facet joints. Following negative aspiration, injections of approximately 0.2cc of Isovue 200 confirmed interarticular placement without vascular uptake. The identical procedure was then performed at the L4/5, L5/S1 facet joints on the left. Radiological data, including multiple fluoroscopic views of the lumbosacral spine, reveal a spinal needle at the L4/5, L5/S1 facet joints bilaterally. Subsequent views show flow of contrast material both superiorly and inferiorly within the joint space without vascular or intrathecal uptake. At this point, a total of 0.5cc including a mixture of 0.25cc Marcaine and 0.25cc betamethasone was injected without complication into each of the corresponding facet joints. The patient tolerated the procedure well without signs or symptoms of complications prior to transfer to the recovery area continued monitoring without incident. The patient was then transferred to the recovery area where they were observed for an appropriate period of time after the injection. The patient reported a VAS score of 7 prior to the procedure and a post- procedure VAS of 0. POST OP INSTRUCTIONS The patient was provided a Pain Log to continue to record their response to the target-specific procedure prior to follow-up visit with their referring physician. Additionally, specific post-injection care instructions and a contact number to our office were provided if concerns arise regarding possible complications associated with the procedure are suspected.
== END 2022-04-26 15:03 | disposition home or self-care (01) ==
LOC: RAD 12:57
PROVIDERS: Family Provider Physical Medicine & Rehabilitation; PCP Family Medicine; Referring Provider Physical Medicine & Rehabilitation; Visit Provider Physical Medicine & Rehabilitation
DX: M47.816 Spondylosis without myelopathy or radiculopathy, lumbar region (principal); M47.817 Spondylosis without myelopathy or radiculopathy, lumbosacral region; M51.36 Other intervertebral disc degeneration, lumbar region; M51.37 Other intervertebral disc degeneration, lumbosacral region
CPT/HCPCS: 64493; 64494; 99152; J0702; J2250

== ENCOUNTER → 2022-05-19 13:01 | Outpatient (CLI) | payer MEDICARE, BC, SELFPAY ==
[2022-05-19 20:22] LABS: BUN Creatinine Ratio 29.4 (6-22); Blood Urea Nitrogen 25 mg/dL (7-17); Calcium 9.5 mg/dL (8.4-10.2); Carbon Dioxide 32 mmol/L (22-32); Chloride 97 mmol/L (98-107); Estimated Glomerular Filt Rate > 60 mL/min (>60); Glucose 77 mg/dL (80-110); HEMOLYSIS < 15 (0-50); Potassium 4.6 mmol/L (3.4-5.1); Sodium 137 mmol/L (137-145)
== END ==
PROVIDERS: Family Provider Physical Medicine & Rehabilitation; PCP Family Medicine; Visit Provider Family Medicine
DX: E87.1 Hypo-osmolality and hyponatremia (principal)
CPT/HCPCS: 80048

== ENCOUNTER → 2022-07-27 14:20 | Outpatient (CLI) | payer MEDICARE, BC, SELFPAY ==
--- NOTE | 2022-07-27 14:21 | DI.RAD.S_ITS ---
PROCEDURE: XR SACRUM COCCYX MIN 2V INDICATIONS: Coccydynia TECHNIQUE: 3 views of the sacrum and coccyx acquired. COMPARISON: None. FINDINGS: Bones: No fractures or dislocations. No suspicious bony lesions. Soft tissues: Visualized bowel gas pattern is normal. No suspicious soft tissue densities. IMPRESSION: No definite sacrococcygeal fracture. Dictated by: Danny Mar M.D. on 07/27/2022 at 17:41 Approved by: Danny Mar M.D. on 07/27/2022 at 17:42
== END ==
PROVIDERS: Family Provider Physical Medicine & Rehabilitation; PCP Family Medicine; Referring Provider Physical Medicine & Rehabilitation; Visit Provider Physical Medicine & Rehabilitation
DX: M53.3 Sacrococcygeal disorders, not elsewhere classified (principal); M47.816 Spondylosis without myelopathy or radiculopathy, lumbar region; M51.26 Other intervertebral disc displacement, lumbar region; M41.80 Other forms of scoliosis, site unspecified; M94.0 Chondrocostal junction syndrome [Tietze]; M81.0 Age-related osteoporosis without current pathological fracture; I49.1 Atrial premature depolarization; I73.00 Raynaud's syndrome without gangrene
CPT/HCPCS: 72220; 99214

== ENCOUNTER → 2022-11-09 11:12 | Outpatient (CLI) | payer MEDICARE, BC, SELFPAY ==
--- NOTE | 2022-11-09 | DI.MG.S_ITS ---
BILATERAL DIGITAL SCREENING MAMMOGRAM 3D/2D WITH CAD: 11/09/2022 CLINICAL: Routine screening. Comparison is made to exams dated: 10/12/2021 mammogram - [facility], 06/06/2019 mammogram, 02/13/2017 ultrasound, and 02/13/2017 mammogram - [facility]. Both breasts are heterogeneously dense, which may obscure small masses (category c / 51-75% glandular tissue). Current study was also evaluated with a Computer Aided Detection (CAD) system. There are benign calcifications in both breasts. There also is a biopsy clip in the left breast. No significant masses, calcifications, or other findings are seen in either breast. There has been no significant interval change. IMPRESSION: BENIGN There is no mammographic evidence of malignancy. A 1 year screening mammogram is recommended. Based on the Tyrer Cuzick model (a risk assessment model) the patient's lifetime risk is 3.0% and her 10 year risk is 0.0%. According to the ACR, ACS, and NCCN guidelines, an annual breast MRI exam along with mammogram is recommended if the patient's lifetime risk is 20% or greater. This exam was interpreted at Station ID: [id number]. NOTE: For mammograms, a report in lay terms will be sent to the patient. Approximately 15% of breast malignancies will not be visualized mammographically. In the management of a palpable breast mass, a negative mammogram must not discourage biopsy of a clinically suspicious lesion. Electronically Signed By: Wayne chavis/nav:11/09/2022 12:10:35 letter sent: Normal Exam ACR BI-RADS Category 2: Benign Finding(s) [id number]
--- NOTE | 2022-11-09 11:15 | DI.RAD.S_ITS ---
PROCEDURE: XR HIP W PEL IF DONE LT 2V INDICATIONS: left hip pain TECHNIQUE: AP pelvis with lateral view(s) of the left hip(s). COMPARISON: [facility], CR, XR SACRUM COCCYX MIN 2V, 07/27/2022, 14:24. FINDINGS: Bones: No fractures or dislocations. Mild bilateral hip joint space narrowing. Pelvic ring appears intact. No suspicious bony lesions. Soft tissues: The visualized bowel gas pattern is normal. No suspicious soft tissue calcifications. IMPRESSION: Mild bilateral hip DJD. If clinically indicated MRI could be considered for further evaluation. Dictated by: Neal Elder M.D. on 11/09/2022 at 13:35 Approved by: Neal Elder M.D. on 11/09/2022 at 13:36
== END ==
PROVIDERS: Family Provider Physical Medicine & Rehabilitation; PCP Family Medicine; Referring Provider Physical Medicine & Rehabilitation; Visit Provider Physician Assistant
DX: Z12.31 Encounter for screening mammogram for malignant neoplasm of breast (principal); M16.0 Bilateral primary osteoarthritis of hip; M70.62 Trochanteric bursitis, left hip; M54.14 Radiculopathy, thoracic region; M94.0 Chondrocostal junction syndrome [Tietze]; M53.3 Sacrococcygeal disorders, not elsewhere classified; M47.816 Spondylosis without myelopathy or radiculopathy, lumbar region; M51.26 Other intervertebral disc displacement, lumbar region; M41.80 Other forms of scoliosis, site unspecified
CPT/HCPCS: 73502; 77063; 77067; 99214

== ENCOUNTER → 2022-11-22 13:33 | Outpatient (CLI) | payer MEDICARE, BC, SELFPAY ==
[2022-11-22 19:56] LABS: BUN Creatinine Ratio 32.9 (6-22); Blood Urea Nitrogen 23 mg/dL (7-17); Calcium 9.6 mg/dL (8.4-10.2); Carbon Dioxide 32 mmol/L (22-32); Chloride 97 mmol/L (98-107); Estimated Glomerular Filt Rate > 60 mL/min (>60); Glucose 112 mg/dL (80-110); HEMOLYSIS < 15 (0-50); Potassium 4.5 mmol/L (3.4-5.1); Sodium 135 mmol/L (137-145)
== END ==
PROVIDERS: Family Provider Physical Medicine & Rehabilitation; PCP Family Medicine; Visit Provider Family Medicine
DX: E87.1 Hypo-osmolality and hyponatremia (principal)
CPT/HCPCS: 80048

== ENCOUNTER → 2023-04-26 11:39 | Outpatient (CLI) | payer MEDICARE, BC, SELFPAY ==
[2023-04-26 20:02] LABS: Add Manual Diff / Slide Review NO; Basophils Absolute Auto 0 /uL (0-100); Basophils Percent Auto 0.6 % (0-2); Eosinophils Absolute Auto 100 /uL (0-450); Eosinophils Percent Auto 2.3 % (2-4); Hematocrit 38.7 % (36-46); Hemoglobin 12.9 g/dL (12.0-16.0); Lymphocytes Absolute Auto 1200 /uL (1100-4500); Lymphocytes Percent Auto 23.3 % (25-40); Mean Corpuscular HGB Conc 33.4 % (30-36); Mean Corpuscular Hemoglobin 33.3 PG (26-34); Mean Corpuscular Volume 99.8 fL (80-100); Monocytes Absolute Auto 400 /uL (0-900); Monocytes Percent Auto 8.6 % (3-14); Neutrophils Absolute Auto 3300 /uL (1500-7000); Neutrophils Percent Auto 65.2 % (50-75); Platelet Count 170 X10^3/uL (150-400); Red Blood Cell Count 3.88 X10^6/uL (4.0-5.2); Red Cell Distribution Width 12.8 % (11.6-14.8)
[2023-04-26 20:22] LABS: Alanine Aminotransferase 19 IU/L (<35); Albumin 4.1 g/dL (3.5-5.0); Albumin Globulin Ratio 1.4 (1.0-2.8); Alkaline Phosphatase 32 U/L (38-126); Aspartate Aminotransferase 27 IU/L (14-36); BUN Creatinine Ratio 37.8 (6-22); Bilirubin Total 0.7 mg/dL (0.2-1.3); Blood Urea Nitrogen 31 mg/dL (7-17); Calcium 10.2 mg/dL (8.4-10.2); Carbon Dioxide 32 mmol/L (22-32); Chloride 98 mmol/L (98-107); Estimated Glomerular Filt Rate > 60 mL/min (>60); Globulin 2.9 g/dL (1.7-4.1); Glucose 80 mg/dL (80-110); HEMOLYSIS < 15 (0-50); Sodium 137 mmol/L (137-145)
== END ==
PROVIDERS: Family Provider Physical Medicine & Rehabilitation; PCP Family Medicine; Visit Provider Physician Assistant
DX: D64.9 Anemia, unspecified (principal); E87.1 Hypo-osmolality and hyponatremia; I10 Essential (primary) hypertension; R10.2 Pelvic and perineal pain; N76.0 Acute vaginitis
CPT/HCPCS: 80053; 85025

== ENCOUNTER → 2023-06-12 10:26 | Outpatient (CLI) | payer MEDICARE, BC, SELFPAY ==
--- NOTE | 2023-06-12 10:27 | DI.RAD.S_ITS ---
PROCEDURE: XR LUMBAR SPINE MIN 4V INDICATIONS: Low back pain status post fall TECHNIQUE: 5 views of the lumbar spine acquired, including flexion and extension views. COMPARISON: [facility] CR, XR LUMBAR SPINE 2-3V, 02/02/2022, 12:41. FINDINGS: Bones: Generalized decreased osseous mineralization noted. Convex left thoracolumbar scoliosis present. Anterior wedge shaped height loss noted at L2 and L3. Disc space narrowing and hypertrophic facet joints noted throughout the exam particularly in the lower lumbar spine Soft tissues: Overlying bowel gas pattern is normal. No suspicious soft tissue calcifications. Flexion/extension: There is normal range of motion, with preserved normal alignment. IMPRESSION: Degenerative disc disease and arthropathy particularly lower lumbar spine associated with thoracolumbar levoscoliosis. Osteopenic chronic L2 and L3 wedge-shaped compression fractures, stable Approved by: Greg Sandoval M.D. on 06/12/2023 at 19:25
== END ==
PROVIDERS: Family Provider Physical Medicine & Rehabilitation; PCP Family Medicine; Referring Provider Physical Medicine & Rehabilitation; Visit Provider Physical Medicine & Rehabilitation
DX: M51.16 Intervertebral disc disorders with radiculopathy, lumbar region (principal); M47.26 Other spondylosis with radiculopathy, lumbar region; M48.56XA Collapsed vertebra, not elsewhere classified, lumbar region, initial encounter for fracture; M41.9 Scoliosis, unspecified; G89.29 Other chronic pain
CPT/HCPCS: 72110

== ENCOUNTER 2023-07-18 12:30 | Outpatient (CLI) | payer MEDICARE, BC, SELFPAY ==
[2023-07-18] VITALS (9 sets, daily range): BP systolic 101–142; BP diastolic 54–67; PULSE 61–72; RESP 11–22; TEMP 37.1; O2SAT 98–100
--- NOTE | 2023-07-18 13:30 | DI.RAD.S_ITS ---
PROCEDURE: PAIN SI JOINT INJECTION INDICATIONS: SI arthopathy COMPARISON: [facility], CR, XR LUMBAR SPINE MIN 4V, 06/12/2023, 10:44. FINDINGS: Fluoroscopic spot filming was performed to verify placement of spinal needles at the left SI joint, as labeled on the films. Appropriate location(s) of the needle tip(s) was confirmed by injection of iodinated contrast. IMPRESSION: Intraoperative guidance provided. Dictated by: Neal Elder M.D. on 07/18/2023 at 17:47 Approved by: Neal Elder M.D. on 07/18/2023 at 17:47
[2023-07-18] MEDS: MIDAZOLAM 2 MG/2 ML VIAL IV (13:54)
[2023-07-18] MEDS: BETAMETHASONE 30 MG/5 ML MDV 12 MG INJ (13:57)
[2023-07-18] MEDS: iopamidoL 15 ML VIAL 3 ML INJ (13:57)
[2023-07-18] MEDS: BUPIVACAINE 0.5% (PF) 10 ML VIAL 2 ML INJ (13:57)
--- NOTE | 2023-07-18 14:08 | PM.PROC.IR.1 ---
Date/Time/Diagnoses Date of procedure: 07/18/23 Time of procedure: 14:08 Pre-procedure diagnosis: Sacroiliac Joint Pain/DJD Post-procedure diagnosis: same Procedure Notes Procedure: Fluoroscopically guided contrast controlled left sacroiliac joint injection Indications: Kelly is referred by Dr. Diaz for treatment of left sacroiliac joint DJD Physician: Randal Hidalgo Total Fluoroscopy time (seconds): 11 Total sedation minutes: 11 Complications: none Procedure in detail & Post-procedure care: DESCRIPTION OF PROCEDURE Fluoroscopic guided, contrast controlled left sacroiliac joint injection Following review of allergies and review of potential side effects and complications, including, but not necessarily limited to, infection, allergic reaction, local tissue breakdown, temporary as well as permanent nerve injury, paralysis, stroke and possible , the patient indicated that they understood and agreed to proceed. An informed consent was signed by the patient, witnessed by a nurse, and placed in the patient's chart. Additionally, other treatment options including modalities, medications, and physical therapy were reviewed with the patient. After review of previous anaesthesic history and IV conscious sedation the patient was deemed safe to proceed with today?s procedure with IV conscious sedation as ASA class II designation. Safety time-out was performed to confirm patient ID, procedure to be performed and site of procedure. IV sedation was accomplished with a combination of 2mg of Versed administered by the RN after DO order, titrated to patient comfort during the course of the procedure while the patient remained responsive to all verbal commands. In the prone position following sterile prep and drape of the pelvic region, the hyper lucency on in the inferior aspect of the left sacroiliac joint was identified fluoroscopically the skin was anesthetized be a 25 gauge 1 eventual with approximately 2cc of 1% lidocaine solution. At this point, a 22 gauge 3inch spinal needle was atraumatically introduced and advanced under fluoroscopic guidance into the inferior aspect of the left sacroiliac joint. Following negative aspiration, approximately 0.3cc of Isovue-300 was injected confirming intra-articular placement without vascular uptake. Radiographic data, including multiple fluoroscopic views of the pelvis, reveals a spinal needle in the left sacroiliac joint hyper lucent zone. Subsequent view show flow contrast tear superiorly and inferiorly within the joint capsule without vascular intrathecal uptake. At this point a total of 1cc or 0.5% Marcaine was combined with 1cc of 6mg of betamethasone was injected without incident. The patient tolerated the procedure well without signs or symptoms of complications prior to transfer to the recovery area for further monitoring. The patient was then transferred to the recovery area with a bur observed for an appropriate time after the injection. The patient reverted a vas score of 7 prior to the procedure and postprocedure vas of 1. POSTOP INSTRUCTIONS The patient was provided with a pain like to continue to record the patient's response to the target specific procedure prior to the patient's follow-up visit with the referring physician. Additionally, specific post injection care instructions and a contact number to our office were provided if concerns arise regarding the possible complications associated with procedure are suspected.
== END 2023-07-18 14:28 | disposition home or self-care (01) ==
PROVIDERS: Family Provider Physical Medicine & Rehabilitation; PCP Family Medicine; Referring Provider Physical Medicine & Rehabilitation; Visit Provider Physical Medicine & Rehabilitation
DX: M53.3 Sacrococcygeal disorders, not elsewhere classified (principal); M46.1 Sacroiliitis, not elsewhere classified
CPT/HCPCS: 27096; 77002; 99152; G0260; J0702; J2250

== ENCOUNTER 2023-09-01 10:44 | Emergency (ER) | payer MEDICARE, BC, SELFPAY ==
[2023-09-01 11:16] VITALS: BP 124/58; PULSE 56; RESP 18; TEMP 36.9; O2SAT 99; BMI 17.7
--- NOTE | 2023-09-01 11:43 | ED_ITS ---
HPI - Animal Bite <Connie Valentin PA-C - Last Filed: 09/01/23 12:03> General Chief Complaint: Animal Bite Stated Complaint: cat bite on L hand Time Seen by Provider: 09/01/23 11:42 Source: patient Mode of arrival: Ambulatory History of Present Illness HPI narrative: 82-year-old female presents this morning for left dorsal cat bite. It occurred last night at home around 7:00 p.m., she did wash the area with soap and water control the bleeding applied a dressing of gauze and paper tape as well as some old Neosporin. She is denying any fever, chills, numbness or tingling. She states that it looks a lot better this morning. She has not having any pain in the forearm or elbow and no redness that she is aware of. It was her own cat that she obtained from the long term, it is up-to-date on its vaccinations. She is also up-to-date on her tetanus as of 2022. She is left-handed dominant. She lives on [address] and will be saling home tonight. Related Data Home Medications Medication Instructions Recorded Confirmed lysine 1,000 mg tablet 1,000 mg PO DAILY 01/04/18 06/21/23 valacyclovir 500 mg tablet 500 mg PO DAILY 01/04/18 06/21/23 vitamins A,C,[id number]-[id number] [ICaps PO 01/04/18 06/21/23 AREDS] magnesium 400 mg PO .qday 10/01/18 06/21/23 calcium citrate 200 mg (950 mg) 200 mg PO DAILY 06/21/23 06/21/23 tablet Previous Rx's Medication Instructions Recorded estradiol 0.01% (0.1 mg/gram) 1 g vaginal 2XW #42.5 grams 10/27/22 vaginal cream denosumab 60 mg/mL subcutaneous 60 mg SUBCUT [id number] #1 mL 12/20/22 syringe (Prolia) celecoxib 200 mg capsule (Celebrex) 200 mg PO DAILY #90 caps 05/22/23 baclofen 10 mg tablet 10 mg PO DAILY for low back pain 06/21/23 #90 tabs atenolol 25 mg tablet 25 mg PO DAILY #90 tabs 08/02/23 amoxicillin 875 mg-potassium 1 tab PO BID #20 tabs 09/01/23 clavulanate 125 mg tablet Allergies Allergy/AdvReac Type Severity Reaction Status Date / Time gluten [GLUTEN] Allergy Unknown Verified 06/21/23 11:30 tramadol [TRAMADOL] Allergy Unknown Verified 06/21/23 11:30 diltiazem AdvReac Unknown Verified 06/21/23 11:30 Review of Systems <Connie Valentin PA-C - Last Filed: 09/01/23 12:03> Review of Systems Narrative: All other systems are reviewed and are negative. Patient History <Connie Valentin PA-C - Last Filed: 09/01/23 12:03> Medical History Greater trochanteric bursitis of left hip Coccydynia Facet arthropathy, lumbar Urgency of urination Feeling of incomplete bladder emptying Essential hypertension Perineal pain Pelvic pain Hematuria Herniated nucleus pulposus, L2-3 left Surgical History History of cataract surgery History of tonsillectomy Family History Mother Heart disease History of heart valve replacement Rheumatic fever Social History marital status: Smoking Status: Former smoker alcohol intake: current Smoking Status: Former smoker alcohol intake frequency: 0-2 drinks per day Substance Use Type: marijuana Exam <Connie Valentin PA-C - Last Filed: 09/01/23 12:03> Initial Vital Signs Initial Vital Signs: Vital Signs Temperature 98.4 F 09/01/23 11:16 Pulse Rate 56 L 09/01/23 11:16 Respiratory Rate 18 09/01/23 11:16 Blood Pressure 124/58 L 09/01/23 11:16 Pulse Oximetry 99 09/01/23 11:16 Oxygen Delivery Method Room Air 09/01/23 11:16 Vital signs reviewed and are normal. Const Other: Smiling, seated, no distress. Resp Other: Clear to auscultation. Skin Other: Small 3/4 cm linear flap laceration dorsal left hand. No subcutaneous fat showing, it is well aligned. There is no redness, no focal tenderness. She is negative for any epitrochlear nodes, no lymphangitis. . Neuro Other: No focal neuro deficits. Extrem Other: Full active range of motion to the hand and fingers her wedding band is loose. <Juana Shea DO - Last Filed: 09/07/23 18:14> Initial Vital Signs Initial Vital Signs: Vital Signs Temperature 98.4 F 09/01/23 11:16 Pulse Rate 56 L 09/01/23 11:16 Respiratory Rate 18 09/01/23 11:16 Blood Pressure 124/58 L 09/01/23 11:16 Pulse Oximetry 99 09/01/23 11:16 Oxygen Delivery Method Room Air 09/01/23 11:16 Course <Connie Valentin PA-C - Last Filed: 09/01/23 12:03> Vital Signs Vital signs: Vital Signs - 8 hr 09/01/23 11:16 Temperature 98.4 F Pulse Rate 56 L Respiratory Rate 18 Blood Pressure 124/58 L Pulse Oximetry 99 Oxygen Delivery Method Room Air <Juana Shea DO - Last Filed: 09/07/23 18:14> Vital Signs Vital signs: Vital Signs - 8 hr 09/01/23 11:16 Temperature 98.4 F Pulse Rate 56 L Respiratory Rate 18 Blood Pressure 124/58 L Pulse Oximetry 99 Oxygen Delivery Method Room Air MDM - Animal Bite <Connie Valentin PA-C - Last Filed: 09/01/23 12:03> MDM Narrative Medical decision making narrative: Single lesion, flap laceration to the skin clinical findings are consistent with an animal bite she described a CT. I have placed her on Augmentin for prevention. She has no clinical findings to warrant radiographs at this time. We discussed at length signs and symptoms of infection, increased swelling, redness, pain, any drainage, any swelling in her elbow or forearm to please return to the emergency department. Discharge Plan Departure Patient Disposition: Home Clinical Impression: Cat bite of hand Qualifiers: Encounter type: initial encounter Laterality: left Qualified Code(s): S61.452A - Open bite of left hand, initial encounter Instructions: DI for Cat Bite Activity Restrictions/Additional Instructions: Please start the Augmentin antibiotic tonight. Take with food. Cautioned as antibiotics can cause loose stools, please stay hydrated, monitor the area for any redness, swelling, pain, drainage, swelling in her elbow or any red streaks, fever, please return to the emergency department if this occurs. We advised an animal bite form was submitted with [facility] as it is required by this provider to submit they may give you a phone call just to verify vaccination status of your kidney. This is routine. Prescriptions: New amoxicillin-pot clavulanate 875-125 mg tablet 1 tab PO BID Qty: 20 0RF No Action estradiol 0.01 % (0.1 mg/gram) cream 1 g vaginal 2XW Qty: 42.5 5RF Rx Instructions: Please compound 0.015% cream and patient to apply vaginally twice weekly. Prolia 60 mg/mL syringe 60 mg SUBCUT [id number] Qty: 1 0RF celecoxib [Celebrex] 200 mg capsule 200 mg PO DAILY Qty: 90 2RF atenolol 25 mg tablet 25 mg PO DAILY Qty: 90 1RF valacyclovir 500 mg tablet 500 mg PO DAILY lysine 1,000 mg tablet 1,000 mg PO DAILY vitamins A,C,G-yimx-hatxrw PO magnesium 400 mg PO .qday calcium citrate 200 mg (950 mg) tablet 200 mg PO DAILY baclofen 10 mg tablet 10 mg PO DAILY MDD 10mg Qty: 90 2RF Referrals: Randal Diaz MD [Primary Care Provider] - Stand Alone Forms: Patient Portal/API ED Sign-out <Juana Shea DO - Last Filed: 09/07/23 18:14> Cosign ED Attending Cosdonaldature Attestation: I was available for consultation.
[2023-09-01 12:08] VITALS: BP 113/59; PULSE 61; RESP 20; O2SAT 98
== END 2023-09-01 12:16 | disposition home or self-care (01) ==
PROVIDERS: Emergency Provider Physician Assistant Medical; Family Provider Physical Medicine & Rehabilitation; PCP Family Medicine
DX: S61.452A Open bite of left hand, initial encounter (principal); W55.01XA Bitten by cat, initial encounter; Y92.009 Unspecified place in unspecified non-institutional (private) residence as the place of occurrence of the external cause
CPT/HCPCS: 99281; 99283

== ENCOUNTER → 2023-10-17 13:28 | Outpatient (CLI) | payer MEDICARE, BC, SELFPAY ==
[2023-10-17 20:31] LABS: Add Manual Diff / Slide Review NO; Basophils Absolute Auto 0 /uL (0-100); Basophils Percent Auto 0.7 % (0-2); Eosinophils Absolute Auto 200 /uL (0-450); Hematocrit 37.5 % (36-46); Hemoglobin 12.5 g/dL (12.0-16.0); Lymphocytes Absolute Auto 1500 /uL (1100-4500); Lymphocytes Percent Auto 23.4 % (25-40); Mean Corpuscular HGB Conc 33.5 % (30-36); Mean Corpuscular Hemoglobin 33.3 PG (26-34); Mean Corpuscular Volume 99.5 fL (80-100); Monocytes Absolute Auto 500 /uL (0-900); Monocytes Percent Auto 8.2 % (3-14); Neutrophils Absolute Auto 4000 /uL (1500-7000); Neutrophils Percent Auto 63.7 % (50-75); Platelet Count 177 X10^3/uL (150-400); Red Blood Cell Count 3.76 X10^6/uL (4.0-5.2); Red Cell Distribution Width 13.4 % (11.6-14.8); White Blood Cell Count 6.3 X10^3/uL (4.5-11.0)
[2023-10-17 20:45] LABS: Aspartate Aminotransferase 30 IU/L (14-36)
== END ==
PROVIDERS: Physician Assistant; Family Provider Physical Medicine & Rehabilitation; PCP Family Medicine; Visit Provider Family Medicine
DX: D64.9 Anemia, unspecified (principal); Z51.81 Encounter for therapeutic drug level monitoring
CPT/HCPCS: 84450; 85025

== ENCOUNTER → 2023-10-24 10:49 | Outpatient (CLI) | payer MEDICARE, BC, SELFPAY | PROVIDERS: Family Provider Physical Medicine & Rehabilitation; PCP Family Medicine; Visit Provider Physician Assistant Medical | DX: T14.8XXA Other injury of unspecified body region, initial encounter (principal); W50.3XXA Accidental bite by another person, initial encounter | CPT/HCPCS: 87070; 87075; 87205 ==

== ENCOUNTER → 2023-12-08 11:32 | Outpatient (CLI) | payer MEDICARE, BC, SELFPAY ==
--- NOTE | 2023-12-08 11:34 | DI.MG.S_ITS ---
BILATERAL DIGITAL SCREENING MAMMOGRAM 3D/2D WITH CAD: 12/08/2023 CLINICAL: Routine screening. Comparison is made to exams dated: 11/09/2022 mammogram, 10/12/2021 mammogram - [facility], and 06/06/2019 mammogram - [facility]. Both breasts are heterogeneously dense, which may obscure small masses (category c / 51-75% glandular tissue). Current study was also evaluated with a Computer Aided Detection (CAD) system. There is a possible asymmetry in the left breast posterior depth superior region seen on the mediolateral oblique view only. This is more prominent. No other significant masses, calcifications, or other findings are seen in either breast. Left breast biopsy clip. IMPRESSION: INCOMPLETE: NEEDS ADDITIONAL IMAGING EVALUATION The possible asymmetry in the left breast is indeterminate. Additional views with possible ultrasound are recommended. Based on the Tyrer Cuzick model (a risk assessment model) the patient's lifetime risk is 1.1% and her 10 year risk is 0.0%. According to the ACR, ACS, and NCCN guidelines, an annual breast MRI exam along with mammogram is recommended if the patient's lifetime risk is 20% or greater. This exam was interpreted at Station ID: [id number]. NOTE: For mammograms, a report in lay terms will be sent to the patient. Approximately 15% of breast malignancies will not be visualized mammographically. In the management of a palpable breast mass, a negative mammogram must not discourage biopsy of a clinically suspicious lesion. Electronically Signed By: Neal Elder M.D. slc/:12/08/2023 14:12:28 letter sent: Additional Imaging Needed ACR BI-RADS Category 0: Incomplete 3340F
== END ==
PROVIDERS: Family Provider Physical Medicine & Rehabilitation; PCP Family Medicine; Referring Provider Family Medicine; Visit Provider Family Medicine
DX: Z12.31 Encounter for screening mammogram for malignant neoplasm of breast (principal); R92.333 Mammographic heterogeneous density, bilateral breasts
CPT/HCPCS: 77063; 77067

== ENCOUNTER → 2023-12-20 11:21 | Outpatient (CLI) | payer MEDICARE, BC, SELFPAY ==
--- NOTE | 2023-12-20 11:24 | DI.US.S_ITS ---
LIMITED ULTRASOUND OF LEFT BREAST: 12/20/2023 CLINICAL: Follow up from addtional views. Comparison is made to exams dated: 12/20/2023 mammogram, 12/08/2023 mammogram, 11/09/2022 mammogram, and 10/12/2021 mammogram - . Color flow and real-time ultrasound of the left breast 12-2 o'clock region were performed. Clark scale images of the real-time examination were reviewed. There is a possible 0.2 cm x 0.4 cm x 0.4 cm mass with an indistinct margin in the left breast at 1 o'clock middle depth 2 cm from the nipple. This mass is hypoechoic with posterior acoustic shadowing. Color flow imaging demonstrates that there is an adjacent vascularity. This finding may correspond to the mammographic asymmetry. IMPRESSION: PROBABLY BENIGN The possible 0.2 cm x 0.4 cm x 0.4 cm mass in the left breast has a differential diagnosis of a complicated cyst, a solid mass, or a fat lobule and is probably benign. A follow-up left mammogram and an ultrasound in 6 months is recommended to demonstrate stability. This exam was interpreted at Station ID: [id number]. Electronically Signed By: Delmar camacho/nav:12/20/2023 16:18:28 letter sent: Followup Recommended Ultrasound BI-RADS: 3 Probably benign
--- NOTE | 2023-12-20 11:25 | DI.MG.S_ITS ---
UNILATERAL LEFT DIGITAL DIAGNOSTIC MAMMOGRAM 3D/2D WITH ADDITIONAL VIEWS: 12/20/2023 CLINICAL: Additional evaluation requested from prior study. Comparison is made to exams dated: 12/08/2023 mammogram, 11/09/2022 mammogram, and 10/12/2021 mammogram - [facility]. The left breast is heterogeneously dense, which may obscure small masses (category c / 51-75% glandular tissue). There is an oval equal density asymmetry with an obscured and circumscribed margin in the left breast middle depth superior region seen on the mediolateral oblique view only. This is more prominent. No other significant masses or calcifications are seen in the breast. IMPRESSION: INCOMPLETE: NEEDS ADDITIONAL IMAGING EVALUATION The oval equal density asymmetry in the left breast is indeterminate. An ultrasound is recommended. Based on the Tyrer Cuzick model (a risk assessment model) the patient's lifetime risk is 1.1% and her 10 year risk is 0.0%. According to the ACR, ACS, and NCCN guidelines, an annual breast MRI exam along with mammogram is recommended if the patient's lifetime risk is 20% or greater. This exam was interpreted at Station ID: [id number]. NOTE: For mammograms, a report in lay terms will be sent to the patient. Approximately 15% of breast malignancies will not be visualized mammographically. In the management of a palpable breast mass, a negative mammogram must not discourage biopsy of a clinically suspicious lesion. Electronically Signed By: Delmar camacho/nav:12/20/2023 16:14:18 ACR BI-RADS Category 0: Incomplete 3340F
== END ==
PROVIDERS: Family Provider Physical Medicine & Rehabilitation; PCP Family Medicine; Referring Provider Family Medicine; Visit Provider Family Medicine
DX: R92.8 Other abnormal and inconclusive findings on diagnostic imaging of breast (principal); R92.333 Mammographic heterogeneous density, bilateral breasts; N64.89 Other specified disorders of breast
CPT/HCPCS: 76642; 77065; G0279

== ENCOUNTER → 2024-02-05 09:15 | Outpatient (CLI) | payer MEDICARE, BC, SELFPAY ==
[2024-02-05 18:47] LABS: Aspartate Aminotransferase 33 IU/L (14-36)
== END ==
PROVIDERS: Family Provider Physical Medicine & Rehabilitation; PCP Family Medicine; Visit Provider Family Medicine
DX: B35.1 Tinea unguium (principal)
CPT/HCPCS: 84450

== ENCOUNTER → 2024-05-28 11:17 | Outpatient (CLI) | payer MEDICARE, BC, SELFPAY ==
--- NOTE | 2024-05-28 11:21 | DI.MG.S_ITS ---
BILATERAL DIGITAL DIAGNOSTIC MAMMOGRAM 3D/2D: 05/28/2024 CLINICAL: Follow up left breast with new symptoms. Comparison is made to exams dated: 12/20/2023 mammogram, 12/08/2023 mammogram, 11/09/2022 mammogram, 10/12/2021 mammogram, and 12/20/2023 [facility]. The breasts are heterogeneously dense, which may obscure small masses (category c / 51-75% glandular tissue). There is an oval asymmetry with an obscured and circumscribed margin in the left breast middle depth superior region seen on the mediolateral oblique view only. This is not significantly changed. No other significant masses, calcifications, or other findings are seen in either breast. IMPRESSION: INCOMPLETE: NEED ADDITIONAL IMAGING EVALUATION The oval asymmetry in the left breast is indeterminate. An ultrasound is recommended. There is no abnormality seen in either breast to correspond with the diffuse pain, however, clinical followup is recommended. Based on the Tyrer Cuzick model (a risk assessment model) the patient's lifetime risk is 1.1% and her 10 year risk is 0.0%. According to the ACR, ACS, and NCCN guidelines, an annual breast MRI exam along with mammogram is recommended if the patient's lifetime risk is 20% or greater. This exam was interpreted at Station ID: [id number]. NOTE: For mammograms, a report in lay terms will be sent to the patient. Approximately 15% of breast malignancies will not be visualized mammographically. In the management of a palpable breast mass, a negative mammogram must not discourage biopsy of a clinically suspicious lesion. Electronically Signed By: Delmar Burgess M.D. ar/:05/29/2024 14:17:45 ACR BI-RADS Category 0: Incomplete: Need Additional Imaging Evaluation
--- NOTE | 2024-05-28 11:21 | DI.MRI.S_ITS ---
PROCEDURE: MR LOWER LEG LT WO CON COMPARISON: [facility] ([place]), CR, XR ANKLE LT MIN 3V, 05/06/2024, 11:04. [facility], MR, MR ANKLE LT WO CON, 05/28/2024, 14:00. INDICATIONS: distal fibular pain FINDINGS: Bone: The marrow signal is within normal limits. There is no pathologic fracture , dislocation, or acute stress fracture. Joint: No significant knee or tibiotalar joint effusion. Muscle: Overall muscle bulk is preserved. Tendon: The visualized flexor and extensor tendons are within normal limits. Nerve: The dominant nerves are normal in signal and caliber. Vessels: The dominant flow voids of the posterior tibial artery and vein are preserved. Lymph node: There is no popliteal lymphadenopathy. Other: There is no acute abnormality. IMPRESSION: No acute MR abnormality the left lower leg. Dictated by: Jaime Shafer M.D. on 05/28/2024 at 15:36 Approved by: Jaime Shafer M.D. on 05/28/2024 at 15:39
--- NOTE | 2024-05-28 11:21 | DI.MRI.S_ITS ---
BREAST MRI OF BOTH BREASTS: 05/28/2024 CLINICAL: Bilateral breast pain. Comparison is made to exams dated: 05/28/2024 mammogram, 12/20/2023 mammogram, 12/08/2023 mammogram, 11/09/2022 mammogram, 05/28/2024 ultrasound, and 12/20/2023 ultrasound - [facility]. INDICATIONS: Bilat tingling. abn left breast mammo. Dense tissue TECHNIQUE: The patient was placed prone in a dedicated breast imaging coil. Precontrast axial STIR and 3D FLASH without fat saturation sequences were obtained. Both before and after bolus injection of contrast, sequential 1-minute axial 3D FLASH with fat saturation sequences for 3 time points, with subtraction images and maximum intensity projections (MIP's) generated. Delayed sagittal FLASH images with fat saturation were also obtained. Computer-aided detection, including computer algorithm analysis of MRI image data for lesion detection and characterization, pharmacokinetic analysis, with further physician review for interpretation, was performed. FINDINGS: Image quality: Excellent. There is minimal background parenchymal enhancement. There are heterogeneous fibroglandular elements in both breasts. Right breast: A nonenhancing, intrinsically [id number] cyst is seen in the right breast central nipple posterior depth (4/69), which is considered benign. No suspicious mass or abnormal non-mass enhancement. No significantly enlarged axillary or internal mammary lymphadenopathy. Left breast: No finding is seen corresponding to the same day ultrasound finding in the left breast at the 1 o'clock position. No suspicious mass or abnormal non-mass enhancement. No significantly enlarged axillary or internal mammary lymphadenopathy. Miscellaneous: A circumscribed [id number] lesion is seen in the left hepatic lobe with possible mild homogeneous postcontrast enhancement. The included portions the chest wall and upper abdomen otherwise demonstrate no significant abnormality. IMPRESSION: BENIGN 1. No finding is seen corresponding to the subcentimeter mass in the left breast seen on same day ultrasound, which remains suspicious for malignancy and ultrasound guided biopsy is recommended. 2. No finding is seen corresponding to the reported diffuse bilateral breast tingling/pain. Recommend clinical follow up. 3. No MR evidence of malignancy in the right or left breast. No axillary or internal mammary lymphadenopathy. BIRADS 2: Benign. COMMENT: The imaging literature indicates that a negative contrast breast MRI examination has a high sensitivity and a moderate specificity for detecting and excluding invasive carcinomas to a detection threshold of 3-5 mm; nonetheless, appropriate clinical and mammographic follow-up are recommended. MRI is not sensitive for detecting DCIS (ductal carcinoma in situ) and may not detect large invasive neoplasms that show only minimal enhancement such as mucinous carcinoma. If there are suspicious calcifications or clinically worrisome palpable masses, then biopsy should still be considered. Invasive neoplasms can be hidden by co-existent and benign enhancement caused by mastitis, hormone therapy effects, radiation therapy, , and recent biopsy or surgery. False positive examinations can occur in a number of circumstances, including breasts that have recently been subject to invasive procedures and those that contain atypical ductal hyperplasia, hormonally stimulated glandular tissue, fat necrosis, or radial scars. This exam was interpreted at Station ID: [id number]. Electronically Signed By: Delmar Burgess M.D. ar/:05/29/2024 14:18:11 ACR BI-RADS Category 2: Benign
--- NOTE | 2024-05-28 11:21 | DI.MRI.S_ITS ---
PROCEDURE: MR ANKLE LT WO CON INDICATIONS: concern for internal derangement. TECHNIQUE: Noncontrast sagittal T1 spin echo and T2 fast spin echo with fat saturation, axial proton density fast spin echo and T2 fast spin echo with fat saturation, coronal T1 spin echo and T2 fast spin echo with fat saturation through the ankle/hindfoot. COMPARISON: [facility] ([facility]), CR, XR ANKLE LT MIN 3V, 05/06/2024, 11:04. FINDINGS: Image quality: Excellent. Bones: The bone marrow signal is normal. The anterior process of the calcaneus and lateral process of the talus are intact. No talar dome osteochondral defect is seen. Mild diffuse thinning of the osseous cortices, which can be seen with osteoporosis/osteopenia. Joints: There is no significant joint effusion. Scattered midfoot osteoarthritis. Sinus tarsi: The sinus tarsi signal is normal. Syndesmotic ligaments: The anterior and posterior inferior syndesmotic ligaments are normal. Lateral collateral ligament: There is mild low signal thickening of the anterior talofibular ligament as well as thickening of the accessory anterior-inferior tibiofibular ligament. The lateral collateral ligaments are otherwise normal. Deltoid ligament: The visualized components of the deltoid ligament, that being the posterior tibiotalar and tibiospring ligaments, are normal. Calcaneonavicular spring ligament: The superomedial component of the calcaneonavicular spring ligament is grossly intact. Tendons: There is a chronic split tear morphology of the peroneus brevis with distal reconstitution (4/28). The Achilles tendon is normal. The extensor, flexor and peroneal tendons are otherwise normal. The peroneal tendons are appropriately situated within the retromalleolar groove, and the superficial peroneal retinaculum is intact. Plantar aponeurosis: There is no abnormal thickening of, abnormal intrasubstance signal involving, or perifascial edema about the plantar aponeurosis. Plantar musculature: There are no findings of denervation involving the plantar muscles of the foot. Nerves: The visualized nerves are unremarkable. Other: Mild edema in Kager's fat pad (6/10), which is a nonspecific finding. No Candice morphology. No retrocalcaneal or retro Achilles bursal edema. IMPRESSION: 1. 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 2. Mild scattered midfoot osteoarthritis. 3. 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 Dictated by: Jaime Shafer M.D. on 05/28/2024 at 15:16 Approved by: Jaime Shafer M.D. on 05/28/2024 at 15:34
--- NOTE | 2024-05-28 11:21 | DI.US.S_ITS ---
LIMITED ULTRASOUND OF LEFT BREAST AND AXILLA: 05/28/2024 CLINICAL: 6 month follow-up of complex mass. Comparison is made to exams dated: 05/28/2024 mammogram, 12/20/2023 ultrasound, 12/20/2023 mammogram, 12/08/2023 mammogram, 11/09/2022 mammogram, and 10/12/2021 mammogram - [facility]. Color flow and real-time ultrasound of the left breast 1 o'clock, and axilla regions were performed. Clark scale images of the real-time examination were reviewed. There is a 0.4 cm x 0.5 cm x 0.3 cm irregular mass with an indistinct and angular margin in the left breast at 1 o'clock middle depth 2 cm from the nipple. This irregular mass is hypoechoic with posterior acoustic shadowing. This abnormality is more prominent. No significant abnormalities were seen sonographically in the left axilla. IMPRESSION: SUSPICIOUS The 0.4 cm x 0.5 cm x 0.3 cm irregular mass in the left breast is suspicious of malignancy. An ultrasound guided biopsy is recommended. The findings and recommendations were conveyed to the patient at the time of the exam. No significant abnormalities were seen sonographically in the left axilla. This exam was interpreted at Station ID: [id number]. Electronically Signed By: Delmar Burgess M.D. ar/:05/29/2024 14:18:01 letter sent: Biopsy Required ACR BI-RADS Category 4: Suspicious
== END ==
PROVIDERS: PCP Family Medicine; Referring Provider Physician Assistant; Visit Provider Physician Assistant
DX: R92.8 Other abnormal and inconclusive findings on diagnostic imaging of breast (principal); N63.21 Unspecified lump in the left breast, upper outer quadrant; N60.01 Solitary cyst of right breast; R92.333 Mammographic heterogeneous density, bilateral breasts; R92.30 Dense breasts, unspecified; R20.2 Paresthesia of skin; K76.9 Liver disease, unspecified; M25.572 Pain in left ankle and joints of left foot; M19.072 Primary osteoarthritis, left ankle and foot; S93.492A Sprain of other ligament of left ankle, initial encounter; M89.8X6 Other specified disorders of bone, lower leg; M81.0 Age-related osteoporosis without current pathological fracture
CPT/HCPCS: 73718; 73721; 76642; 77049; 77066; G0279; A9579

== ENCOUNTER → 2024-06-28 11:39 | Outpatient (CLI) | payer MEDICARE, BC, SELFPAY ==
--- NOTE | 2024-06-28 11:40 | DI.US.S_ITS ---
ULTRASOUND GUIDED BIOPSY LEFT BREAST USING VACUUM DEVICE WITH MARKING DEVICE INSERTED AND POST DIGITAL MAMMOGRAPHIC IMAGIN06/28/2024 CLINICAL: Left breast mass. PATIENT CONSENT: Risks (minor bleeding, infection, vasovagal reaction and repeat procedure), benefits and alternatives were explained to the patient and written informed consent was obtained. Correlation is made to exams dated: 06/28/2024 mammogram, 05/28/2024 ultrasound, 05/28/2024 breast MRI, 05/28/2024 mammogram, 12/20/2023 ultrasound, and 12/20/2023 mammogram - [facility]. An ultrasound guided biopsy using real-time ultrasound was performed for the 0.4 cm x 0.5 cm x 0.3 cm mass located in the left breast at 1 o'clock middle depth 2 cm from the nipple. This was described on the previous ultrasound report. The skin was prepped in the usual manner. Local anesthetic was administered to the access site. A skin brice was made in the breast. The abnormality was approached from the lateral aspect. A 14 gauge biopsy needle was placed adjacent to the abnormality under ultrasound guidance. Once the needle was documented to be in the correct location, four specimens were obtained using a vacuum assisted device. A clip was inserted into the biopsy cavity. A sterile dressing was applied to the access site. Post procedure digital mammographic imaging demonstrates the location device at the targeted area. The specimens were sent to the laboratory for pathological analysis. IMPRESSION: ULTRASOUND GUIDED BIOPSY BENIGN Ultrasound guided biopsy of the 0.4 cm x 0.5 cm x 0.3 cm mass in the left breast at 1 o'clock middle depth 2 cm from the nipple was successful with no apparent post procedure complications. Pathology indicates benign fibroglandular tissue with stromal hyalinization and focal microcalcifications. Pathology results are concordant with imaging findings. Of note, patient had a negative bilateral breast MRI on same day of diagnostic evaluation dated 05/28/2024. Recommend return to annual screening mammograms. This exam was interpreted at Station ID: [id number]. Delmar Calle M.D. ar,aty/:07/04/2024 08:37:41
--- NOTE | 2024-06-28 11:41 | DI.MG.S_ITS ---
UNILATERAL LEFT DIGITAL DIAGNOSTIC MAMMOGRAM 3D/2D - LEFT BREAST POST-PROCEDURE IMAGING FOR MARKER PLACEMENT: 06/28/2024 CLINICAL: Post left breast ultrasound biopsy, clip placment imaging. Comparison is made to exams dated: 05/28/2024 mammogram, 12/20/2023 mammogram, 12/08/2023 mammogram, 05/28/2024 ultrasound, 12/20/2023 ultrasound, and 05/28/2024 breast MRI - [facility]. The breasts are heterogeneously dense, which may obscure small masses (category c / 51-75% glandular tissue). There is a marker clip in the appropriate position in the left breast at 1 o'clock anterior depth. This marker clip placement is at the biopsy site. IMPRESSION: POST PROCEDURE MAMMOGRAM FOR MARKER PLACEMENT There was a successful marker clip placement in the left breast anterior depth. Based on the Tyrer Cuzick model (a risk assessment model) the patient's lifetime risk is 1.1% and her 10 year risk is 0.0%. According to the ACR, ACS, and NCCN guidelines, an annual breast MRI exam along with mammogram is recommended if the patient's lifetime risk is 20% or greater. This exam was interpreted at Station ID: [id number]. NOTE: For mammograms, a report in lay terms will be sent to the patient. Approximately 15% of breast malignancies will not be visualized mammographically. In the management of a palpable breast mass, a negative mammogram must not discourage biopsy of a clinically suspicious lesion. Electronically Signed By: Delmar camacho/nav:06/30/2024 11:54:07 ACR BI-RADS Category Post-Procedure Mammogram for Marker Placement
--- NOTE | 2024-06-28 14:10 | PATH_ITS ---
[facility] Accession Number: [id number] No. of containers..01 Tissue . 01 Material submitted: . breast - LT BREAST 01:00 2CMFN 4 SAMPLES . 01 Diagnosis: LEFT BREAST AT 1 O'CLOCK 2 CM FROM NIPPLE 4 SAMPLES: Fibroglandular tissue fragments with stromal hyalinization and focal microcalcifications (fragments measure approximately 2 mm and 5 mm in greatest dimension). Negative for epithelial atypia or malignancy. Separate fragments of benign fibrovascular and fibroadipose tissue. [facility] 07/01/2024 1334 Local . 01 Electronically signed: . Liberty Kowalski MD, Pathologist NPI- [id number] . 01 Gross description: . Received in formalin, labeled with two identifiers and left breast 1 o'clock 2.5 cm FN, are multiple yellow to moran soft tissue fragments admixed with hemorrhagic material aggregating to 3.2 x 2.5 x 0.3 cm. Inked black, filtered and submitted entirely in cassette A1. . The specimen was removed on 06/28/2024 at presumably 13:41 per the container. Time in formalin not provided. Cold ischemic time cannot be calculated. Total fixation time is approximately 52 hours. ([id number]) /FRR 06/29/2024 1039 Local . 01 Pathologist provided ICD-10: N63.42, N63.20 . 01 CPT . 034164 Specimen Comment: A courtesy copy of this report has been sent to [phone] With [facility] Specimen Comment: Health Pathology Performed at: [address] [address], [place], [place] [id number] MD Josh Avalos MD Phone: [phone]
== END ==
PROVIDERS: PCP Family Medicine; Referring Provider Physician Assistant; Visit Provider Physician Assistant
DX: N63.21 Unspecified lump in the left breast, upper outer quadrant (principal); R92.333 Mammographic heterogeneous density, bilateral breasts
CPT/HCPCS: 19083; 77065

== ENCOUNTER → 2024-08-29 10:33 | Outpatient (CLI) | payer MEDICARE, BC, SELFPAY ==
--- NOTE | 2024-08-29 10:36 | DI.RAD.S_ITS ---
PROCEDURE: XR HIP W PEL IF DONE JUNIE MIN 4V INDICATIONS: LEFT HIP PAIN TECHNIQUE: AP pelvis with lateral view(s) of the both hip(s). COMPARISON: [facility], [place], XR HIP W PEL IF DONE LT 2V, 11/09/2022, 11:20. FINDINGS: Bones: No fractures or dislocations. Moderate bilateral hip DJD. This is demonstrable by joint space loss, acetabular loose sclerosis, and osteophytic lipping. No a vascular necrosis demonstrated. Pelvic ring appears intact. No suspicious bony lesions. Soft tissues: The visualized bowel gas pattern is normal. No suspicious soft tissue calcifications. IMPRESSION: Moderate bilateral hip DJD. Dictated by: Neal Elder M.D. on 08/29/2024 at 12:01 Approved by: Neal Elder M.D. on 08/29/2024 at 12:03
== END ==
PROVIDERS: PCP Family Medicine; Referring Provider Family Medicine; Visit Provider Physical Medicine & Rehabilitation
DX: M16.0 Bilateral primary osteoarthritis of hip (principal)
CPT/HCPCS: 73522

== ENCOUNTER → 2024-12-04 14:06 | Outpatient (CLI) | payer MEDICARE, BC, SELFPAY ==
--- NOTE | 2024-12-04 14:08 | DI.RAD.S_ITS ---
PROCEDURE: XR DEXA AXIAL SKELETON INDICATIONS: osteoporosis COMPARISON: [facility], , XR DEXA AXIAL SKELETON, 10/12/2021, 11:56. [facility], CR, XR DEXA AXIAL SKELETON, 12/25/2017, 12:28. FINDINGS: Lumbar Spine: L1-L4. Bone mineral density 0.819 g/cm2, T score -2.1. Left Femoral Neck: Bone mineral density 0.464 g/cm2, T score -3.5. Left Hip: Bone mineral density 0.557 g/cm2, T score -3.2. Fracture Risk Calculation (when applicable): 10-year fracture risk of a major osteoporotic fracture 35 percent and of a hip fracture 19 percent. (T score greater or equal to -1.0 to: NORMAL) (T score from -1.1 to -2.4: OSTEOPENIA) (T score less than or equal to -2.5: OSTEOPOROSIS) IMPRESSION: Osteoporosis. Follow-up guidelines as follows: Osteoporosis: Consider a repeat DEXA and Vertebral Fracture Assessment (VFA) exam in 2 years or sooner if medically necessary, to reassess this patient's status. Osteopenia: Consider a repeat DEXA in 2-3 years to reassess this patient's status, or if there is a new clinical indication. Normal: Consider a repeat DEXA in 5 years or sooner, or if there is a new clinical indication. All treatment decisions require clinical judgment and consideration of individual patient factors, including patient preferences, comorbidities, previous drug use, risk factors not captured in the FRAX model (e.g., frailty, falls, vitamin D deficiency, increased bone turnover, interval significant decline in bone density ) and possible under- or over-estimation of fracture risk by FRAX. In addition, the NOF Guide recommends that FDA-approved medical therapies be considered in postmenopausal women and men age >= 50 years with a: * Hip or vertebral (clinical or morphometric) fracture * T-score of <=-2.5 at the spine or hip * Ten-year fracture probability by FRAX of >= 3% for hip fracture or >=20% for major osteoporotic fracture. Dictated by: Neal Elder M.D. on 12/05/2024 at 21:38 Approved by: Neal Elder M.D. on 12/05/2024 at 21:41
== END ==
LOC: RAD 14:07
PROVIDERS: PCP Family Medicine; Referring Provider Family Medicine; Visit Provider Family Medicine
DX: M81.0 Age-related osteoporosis without current pathological fracture (principal)
CPT/HCPCS: 77080

== ENCOUNTER → 2025-01-27 11:25 | Outpatient (CLI) | payer MEDICARE, BC, SELFPAY ==
[2025-01-27 19:30] LABS: Magnesium 2.0 mg/dL (1.6-2.3); Phosphorous 4.0 mg/dL (2.8-4.1)
[2025-01-27 19:31] LABS: Alanine Aminotransferase 25 IU/L (<35); Albumin 4.2 g/dL (3.5-5.0); Albumin Globulin Ratio 1.4 (1.0-2.8); Alkaline Phosphatase 50 U/L (38-126); Blood Urea Nitrogen 32 mg/dL (7-17); Calcium 9.9 mg/dL (8.4-10.2); Carbon Dioxide 29 mmol/L (22-32); Chloride 100 mmol/L (98-107); Estimated Glomerular Filt Rate 52 mL/min (>60); Globulin 3.1 g/dL (1.7-4.1); Glucose 86 mg/dL (70-99); HEMOLYSIS < 15 (0-50); Potassium 5.3 mmol/L (3.4-5.1); Sodium 134 mmol/L (137-145); Total Protein 7.3 g/dL (6.3-8.2)
== END ==
PROVIDERS: PCP Family Medicine; Visit Provider Family Medicine
DX: E83.41 Hypermagnesemia (principal); M81.0 Age-related osteoporosis without current pathological fracture; Z51.81 Encounter for therapeutic drug level monitoring
CPT/HCPCS: 80053; 83735; 84100

== ENCOUNTER → 2025-03-13 13:53 | Outpatient (CLI) | payer MEDICARE, BC, SELFPAY ==
[2025-03-13 18:56] LABS: Blood Urea Nitrogen 29 mg/dL (7-17); Calcium 9.8 mg/dL (8.4-10.2); Carbon Dioxide 31 mmol/L (22-32); Chloride 96 mmol/L (98-107); Estimated Glomerular Filt Rate > 60 mL/min (>60); Glucose 77 mg/dL (70-99); HEMOLYSIS < 15 (0-50); Potassium 4.7 mmol/L (3.4-5.1); Sodium 132 mmol/L (137-145)
== END ==
PROVIDERS: PCP Family Medicine; Visit Provider Family Medicine
DX: R79.89 Other specified abnormal findings of blood chemistry (principal); I10 Essential (primary) hypertension
CPT/HCPCS: 80048

== ENCOUNTER → 2025-03-26 13:28 | Outpatient (CLI) | payer MEDICARE, BC, SELFPAY ==
[2025-03-26 18:53] LABS: Add Manual Diff / Slide Review NO; Hematocrit 37.7 % (36-46); Hemoglobin 12.8 g/dL (12.0-16.0); Lymphocytes Absolute Auto 1200 /uL (1100-4500); Mean Corpuscular HGB Conc 33.9 % (30-36); Mean Corpuscular Hemoglobin 33.0 PG (26-34); Mean Corpuscular Volume 97.5 fL (80-100); Platelet Count 210 X10^3/uL (150-400)
[2025-03-26 19:02] LABS: Blood Urea Nitrogen 33 mg/dL (7-17); Calcium 10.3 mg/dL (8.4-10.2); Carbon Dioxide 30 mmol/L (22-32); Chloride 100 mmol/L (98-107); Estimated Glomerular Filt Rate > 60 mL/min (>60); Glucose 81 mg/dL (70-99); HEMOLYSIS < 15 (0-50); Magnesium 2.0 mg/dL (1.6-2.3); Potassium 4.9 mmol/L (3.4-5.1); Sodium 136 mmol/L (137-145)
== END ==
PROVIDERS: PCP Family Medicine; Visit Provider Family Medicine
DX: Z51.81 Encounter for therapeutic drug level monitoring (principal); R79.89 Other specified abnormal findings of blood chemistry; D64.9 Anemia, unspecified; E83.41 Hypermagnesemia; M81.0 Age-related osteoporosis without current pathological fracture; M19.071 Primary osteoarthritis, right ankle and foot; I10 Essential (primary) hypertension; I73.00 Raynaud's syndrome without gangrene
CPT/HCPCS: 80048; 83735; 85025; 85651; 86038; 86140